=== PATIENT | female | born 1965 | race Caucasian/White ===

== ENCOUNTER 2018-05-16 07:03 | Inpatient (IN) | payer MEDICAID ==
[2018-05-16] MEDS ORDERED: IPRATROPIUM/ALBUTEROL 0.5-2.5 MG/3 ML AMPUL NEB ONE (07:22)
[2018-05-16] MEDS ORDERED: ALBUTEROL SULFATE 0.083% NEB 2.5 MG/3 ML AMPUL NEB ONE ×3 (07:31→11:48)
[2018-05-16 07:44] LABS: ABSOLUTE EOSINOPHILS # (AUTO) 0.1 10^3/uL (0.0-0.6); ABSOLUTE LYMPHOCYTES (AUTO) 0.5 10^3/uL (0.5-4.7); ABSOLUTE MONOCYTES (AUTO) 0.6 10^3/uL (0.1-1.4); ABSOLUTE NEUT (AUTO) 6.3 10^3/uL (1.7-8.2); BASOPHILS % (AUTO) 0.5 % (0-2); HEMATOCRIT 44.3 % (36.0-47.0); LYMPHOCYTES % (AUTO) 6.3 % (13-45); MEAN CORPUSCULAR HEMOGLOBIN 29.1 pg (27.0-33.4); MEAN CORPUSCULAR HGB CONC 33.8 g/dL (32.0-36.0); MEAN CORPUSCULAR VOLUME 86 fl (80-97); MONOCYTES % (AUTO) 8.1 % (3-13); PLATELET COUNT 253 10^3/uL (150-450); RED BLOOD COUNT 5.14 10^6/uL (3.72-5.28); RED CELL DISTRIBUTION WIDTH 16.4 % (11.5-14.0); SEGMENTED NEUTROPHILS % (AUTO) 84.1 % (42-78); TOTAL CELLS COUNTED % (AUTO) 100 %; WHITE BLOOD COUNT 7.5 10^3/uL (4.0-10.5)
--- NOTE | 2018-05-16 07:45 | ER Document Report ---
ED General - General Chief Complaint: Breathing Difficulty Stated Complaint: DIFFICULTY BREATHING Time Seen by Provider: 05/16/18 07:17 Primary Care Provider: NICKY ROBERSON MD [Primary Care Provider] - Follow up as needed Notes: 52-year-old female with COPD, depression, anxiety presents to the emergency department for shortness of breath, nausea, vomiting, diarrhea times 2 days. She states that it hit her hard yesterday. She became acutely short of breath this morning and was brought in by ambulance to the emergency department. She denies lightheadedness or dizziness. She complains of cough. She denies ear pain or sore throat. Complains of chest tightness and chest pain worsened with cough but chest pain is not constant or radiating. Denies abdominal pain but complains of right sided flank pain. Denies urinary symptoms. No other complaints. TRAVEL OUTSIDE OF THE [place] IN LAST 30 DAYS: No - Related Data Allergies/Adverse Reactions: Penicillins Allergy (Verified 01/26/14 00:23) Hives Past Medical History - Social History Smoking Status: Current Every Day Smoker Family History: Reviewed & Not Pertinent Patient has suicidal ideation: No Patient has homicidal ideation: No - Past Medical History Cardiac Medical History: Denies: Hx Coronary Artery Disease, Hx Heart Attack, Hx Hypertension Pulmonary Medical History: Reports: Hx Asthma, Hx Bronchitis, Hx COPD, Hx Pneumonia Neurological Medical History: Denies: Hx Cerebrovascular Accident, Hx Seizures Renal/ Medical History: Denies: Hx Peritoneal Dialysis Musculoskeletal Medical History: Denies Hx Arthritis Skin Medical History: Denies Hx MRSA Psychiatric Medical History: Reports: Hx Anxiety, Hx Depression Past Surgical History: Reports: Hx Section, Hx Cholecystectomy, Hx Tubal Ligation - 1993. Denies: Hx Hysterectomy - Immunizations Hx Diphtheria, Pertussis, Tetanus Vaccination: Yes Hx Pneumococcal Vaccination: 12/01/11 Review of Systems - Review of Systems Constitutional: See HPI EENT: See HPI Cardiovascular: See HPI Respiratory: See HPI Gastrointestinal: See HPI Genitourinary: See HPI Female Genitourinary: No symptoms reported Musculoskeletal: No symptoms reported Skin: No symptoms reported Hematologic/Lymphatic: No symptoms reported Neurological/Psychological: No symptoms reported Physical Exam - Vital signs Vitals: Temp Pulse Resp BP Pulse Ox 98.1 F 108 H 21 H 181/99 H 92 05/16/18 07:14 05/16/18 07:14 05/16/18 07:14 05/16/18 07:14 05/16/18 07:14 - Notes Notes: PHYSICAL EXAMINATION: Reviewed vital signs and charting by RN GENERAL: Alert, interacts well. Mild distress. HEAD: Normocephalic, atraumatic. EYES: Pupils equal, round. Extraocular movements intact. ENT: Oral mucosa moist, tongue midline. NECK: Full range of motion. Supple. Trachea midline. LUNGS: Breath sounds heard, end expiratory wheezes, no rales or rhonchi. Mild respiratory distress. Able to talk in full sentences HEART: Regular rate and rhythm. Sinus tachycardia, no murmur ABDOMEN: soft, non-tender. Non-distended. Bowel sounds present in all 4 quadrants. no McBurney's point tenderness, no De La Torre sign. EXTREMITIES: Moves all 4 extremities spontaneously. No edema, No cyanosis. NEUROLOGICAL: Alert and oriented. Normal speech. PSYCH: Normal affect, normal mood. SKIN: Warm, dry, normal turgor. No rashes or lesions noted. Course - Re-evaluation Re-evalutation: 05/16/18 08:00 Overall well-appearing 52-year-old female in mild distress presents for shortness of breath. Patient with history of COPD and one previous hospitalization that did not require intubation. Patient received 1 DuoNeb in route. Discussed case with Dr. Squires. Plan is to give 1 more DuoNeb, get some basic labs, chest x-ray, EKG. 05/16/18 08:45 Chest a and no acute findings seen, no consolidation. Lab work all normal. Troponin negative. Lipase normal. 05/16/18 08:49 Reassessed patient. Still with expiratory wheezing. Patient just went to the bathroom and appears to be short of breath. SPO2 was 89% after hooking her back up. We will give her another breathing treatment. 05/16/18 12:18 Patient received 3 total albuterol nebulizer treatments. Patient still short of breath with audible end expiratory wheezing. Patient still requiring 2 L of O2 via nasal cannula to maintain O2 sats greater than 92%. Spoke with Dr. Madhuri palmer, hospitalist, who saw the patient and is accepting patient for full admission to medical floor. - Vital Signs Vital signs: Temp Pulse Resp BP Pulse Ox 98.4 F 108 H 21 H 135/89 H 92 05/16/18 11:00 05/16/18 07:14 05/16/18 11:00 05/16/18 10:01 05/16/18 11:00 - Laboratory Result Diagrams: 05/16/18 06:30 05/16/18 06:30 Laboratory results interpreted by me: 05/16/18 05/16/18 06:30 06:30 RDW 16.4 H Seg Neutrophils % 84.1 H Lymphocytes % 6.3 L Glucose 120 H Discharge - Discharge Clinical Impression: COPD exacerbation Condition: Stable Disposition: ADMITTED INPATIENT Admitting Provider: Hospitalist Unit Admitted: Medical Floor Referrals: NICKY ROBERSON MD [Primary Care Provider] - Follow up as needed
[2018-05-16 07:51] LABS: ALANINE AMINOTRANSFERASE 17 U/L (9-52); ALBUMIN 4.6 g/dL (3.5-5.0); ALKALINE PHOSPHATASE 69 U/L (38-126); ANION GAP 13 (5-19); ASPARTATE AMINO TRANSFERASE 27 U/L (14-36); BILIRUBIN,DIRECT 0.3 mg/dL (0.0-0.4); BILIRUBIN,TOTAL 0.6 mg/dL (0.2-1.3); BLOOD UREA NITROGEN 9 mg/dL (7-20); CALCIUM 9.6 mg/dL (8.4-10.2); CARBON DIOXIDE 23 mmol/L (22-30); CHLORIDE 102 mmol/L (98-107); GLUCOSE 120 mg/dL (75-110); LIPASE 80.4 U/L (23-300); POTASSIUM 4.6 mmol/L (3.6-5.0); SODIUM 137.8 mmol/L (137-145); TOTAL PROTEIN 7.4 g/dL (6.3-8.2)
--- NOTE | 2018-05-16 08:29 | RADIOLOGY REPORT (SQ) ---
EXAM DESCRIPTION: CHEST SINGLE VIEW COMPLETED DATE/TIME: 05/16/2018 7:51 am REASON FOR STUDY: SOB COMPARISON: 07/03/2012 EXAM PARAMETERS: NUMBER OF VIEWS: One view. TECHNIQUE: Single frontal radiographic view of the chest acquired. RADIATION DOSE: NA LIMITATIONS: None. FINDINGS: LUNGS AND PLEURA: No opacities, masses or pneumothorax. No pleural effusion. MEDIASTINUM AND HILAR STRUCTURES: No masses. Contour normal. HEART AND VASCULAR STRUCTURES: Heart normal in size. Normal vasculature. BONES: No acute findings. HARDWARE: Surgical clips overlie left axilla. OTHER: No other significant finding. IMPRESSION: NO ACUTE RADIOGRAPHIC FINDING IN THE CHEST. TECHNICAL DOCUMENTATION: JOB ID: [id number] [employer]- All Rights Reserved Reading location - IP/workstation name: [email or web address]
[2018-05-16] MEDS ORDERED: ONDANSETRON HCL INJ/PF 4 MG/2 ML SDV IV ONE (08:52)
[2018-05-16] MEDS ORDERED: ONDANSETRON HCL INJ/PF 4 MG/2 ML SDV ONE (08:53)
--- NOTE | 2018-05-16 08:57 | EKG REPORT ---
SEVERITY:- BORDERLINE ECG - SINUS RHYTHM BORDERLINE T WAVE ABNORMALITIES : Confirmed by: Radha Mcclure MD 16-May-2018 08:57:05
[2018-05-16] MEDS ORDERED: PROMETHAZINE HCL INJ 25 MG/1 ML VIAL IV ONE (09:43)
[2018-05-16] MEDS ORDERED: METHYLPREDNISOLONE INJ 125 MG/2 ML SDV IV ONE (10:47)
[2018-05-16] MEDS ORDERED: ACETAMINOPHEN 325 MG TABLET PO ONE (12:13)
[2018-05-16] MEDS ORDERED: ONDANSETRON HCL INJ/PF 4 MG/2 ML SDV IV PRN (12:28)
[2018-05-16] MEDS ORDERED: NICOTINE 7 MG/24 HR PATCH.TD24 TD PRN (12:36)
--- NOTE | 2018-05-16 12:45 | PDOC H&P ---
History of Present Illness Admission Date/PCP: NICKY ROBERSON MD History of Present Illness: ALIZA STEWART is a 52 year old female patient with past medical history of obstructive sleep apnea, morbid obesity, COPD exacerbation, and anxiety depression and bronchial asthma presented with chief complaint of shortness of breath, vomiting and diarrhea. Patient brought by EMS and when she arrived to the hospital her O2 saturation dropped to lower 80s. Patient denied any fever or chills and diaphoresis. She endorses palpitation and chest pain. Even though she has vomiting and diarrhea she denied any abdominal pain. No headache, dizziness, blurring of vision or any seizure activity. Her blood works and imaging studies unremarkable. Past Medical History Cardiac Medical History: Denies: Coronary Artery Disease, Myocardial Infarction, Hypertension Pulmonary Medical History: Reports: Asthma, Bronchitis, Chronic Obstructive Pulmonary Disease (COPD), Pneumonia Neurological Medical History: Denies: Seizures Musculoskeltal Medical History: Denies: Arthritis Psychiatric Medical History: Reports: Depression Hematology: Denies: Anemia Past Surgical History Past Surgical History: Reports: Section, Cholecystectomy, Tubal Ligation - 1993 Denies: Hysterectomy Social History Smoking Status: Current Every Day Smoker Frequency of Alcohol Use: None Drugs: None - Advance Directive Resuscitation Status: Full Code Family History Family History: Reviewed & Not Pertinent, DM, Hypertension Parental Family History Reviewed: Yes Children Family History Reviewed: Yes Sibling(s) Family History Reviewed.: Yes Medication/Allergy Home Medications: Alprazolam [Xanax 0.5 mg Tablet] 0.5 mg PO TID 08/25/13 Cetirizine HCl [Zyrtec] 10 mg PO DAILY 08/25/13 Dicyclomine HCl [Bentyl 10 mg Capsule] 1 cap PO TID 08/25/13 Fluoxetine HCl [Prozac] 40 mg PO DAILY 08/25/13 Fluticasone/Salmeterol [Advair 250-50 Diskus 28 dose] 1 inh IH DAILY 08/25/13 Ipratropium/Albuterol Sulfate [Combivent Inhaler] 14.7 gm IH DAILY 08/25/13 Montelukast Sodium 10 mg PO DAILY 08/25/13 Albuterol Sulfate [Proair HFA] 1 - 2 puff IH Q4 PRN 08/26/13 Allergies/Adverse Reactions: Penicillins Allergy (Verified 01/26/14 00:23) Hives Review of Systems Constitutional: PRESENT: weakness Eyes: PRESENT: as per HPI Ears: PRESENT: as per HPI Nose, Mouth, and Throat: PRESENT: as per HPI Cardiovascular: PRESENT: as per HPI, dyspnea on exertion Musculoskeletal: PRESENT: as per HPI Neurological: PRESENT: as per HPI Physical Exam Vital Signs: Temp Pulse Resp BP Pulse Ox 98.4 F 108 H 21 H 135/89 H 92 05/16/18 11:00 05/16/18 07:14 05/16/18 11:00 05/16/18 10:01 05/16/18 11:00 Intake & Output 05/15/18 05/16/18 05/17/18 06:59 06:59 06:59 Weight 124.2 kg General appearance: PRESENT: mild distress Head exam: PRESENT: atraumatic, normocephalic Mouth exam: PRESENT: moist Neck exam: PRESENT: carotid bruit Respiratory exam: PRESENT: wheezes Cardiovascular exam: PRESENT: RRR, tachycardia. ABSENT: diastolic murmur, rubs, systolic murmur GI/Abdominal exam: PRESENT: normal bowel sounds, soft. ABSENT: distended, guarding, mass, organolmegaly, rebound, tenderness Neurological exam: PRESENT: alert, awake, oriented to time, oriented to situation Results Laboratory Results: 05/16/18 06:30 05/16/18 06:30 05/16/18 05/16/18 06:30 06:30 WBC 7.5 RBC 5.14 Hgb 15.0 Hct 44.3 MCV 86 MCH 29.1 MCHC 33.8 RDW 16.4 H Plt Count 253 Seg Neutrophils % 84.1 H Lymphocytes % 6.3 L Monocytes % 8.1 Eosinophils % 1.0 Basophils % 0.5 Absolute Neutrophils 6.3 Absolute Lymphocytes 0.5 Absolute Monocytes 0.6 Absolute Eosinophils 0.1 Absolute Basophils 0.0 Sodium 137.8 Potassium 4.6 Chloride 102 Carbon Dioxide 23 Anion Gap 13 BUN 9 Creatinine 0.64 Est GFR ( Amer) > 60 Est GFR (Non-Af Amer) > 60 Glucose 120 H Calcium 9.6 Magnesium 1.8 Total Bilirubin 0.6 AST 27 ALT 17 Alkaline Phosphatase 69 Total Protein 7.4 Albumin 4.6 Lipase 80.4 05/16/18 06:30 Troponin I < 0.012 Impressions: Chest X-Ray 05/16/18 07:23 IMPRESSION: NO ACUTE RADIOGRAPHIC FINDING IN THE CHEST. Assessment & Plan - Diagnosis (1) COPD without exacerbation Is this a current diagnosis for this admission?: Yes Plan: Patient has been started on supplemental oxygen, bronchodilator, antibiotics and steroid. (2) Obstructive sleep apnea Is this a current diagnosis for this admission?: Yes Plan: Patient has been started on CPAP. (3) Morbid obesity with BMI of 45.0-49.9, adult Is this a current diagnosis for this admission?: Yes Plan: Advised patient advised to do lifestyle modification in the form of healthy diet regular exercise and weight loss and she voiced agreement. (4) Tobacco dependence Is this a current diagnosis for this admission?: Yes Plan: Patient counseled and encouraged to quit smoking.
--- NOTE | 2018-05-16 14:39 | RADIOLOGY REPORT (SQ) ---
EXAM DESCRIPTION: CTA CHEST COMPLETED DATE/TIME: 05/16/2018 2:15 pm REASON FOR STUDY: MIKE MCINTYRE COMPARISON: 05/16/2018 TECHNIQUE: CT scan of the chest performed using helical scanning technique with dynamic intravenous contrast injection. Images reviewed with lung, soft tissue and bone windows. Reconstructed coronal and sagittal MPR images reviewed. Additional 3 dimensional post-processing performed to develop Maximal Intensity Projection images (TN P). All images stored on PACS. All CT scanners at this facility use dose modulation, iterative reconstruction, and/or weight based d osing when appropriate to reduce radiation dose to as low as reasonably achievable (ALARA). [facility]: Dose Right [facility]: CareDose [facility]: Dose Right [facility]: Teradose 4D [facility]: [employer] CONTRAST TYPE AND DOSE: contrast/concentration: Isovue 350.00 mg/ml; Total Contrast Delivered: 90.0 ml; Total Saline Delivered: 66.2 ml Contrast bolus optimized for the pulmonary arteries. Not diagnostic for the aorta. RENAL FUNCTION: BUN 9, creatinine 0.64 RADIATION DOSE: CT Rad equipment meets quality standard of care and radiation dose reduction techniq ues were employed. CTDIvol: 37.2 - 37.9 mGy. DLP: 1445 mGy-cm. . LIMITATIONS: None. FINDINGS: LUNGS AND PLEURA: Subtle scattered areas of centrilobular and tree-in-bud opacities most c onspicuous within the left upper lobe and the lingula. No dense consolidation. No pleural effusion or pneumothorax. Calcified right middle lobe granuloma. No discrete masses. AORTA AND GREAT VESSELS: No aneurysm. Contrast bolus not optimized for the aorta. HEART: No pericardial effusion. No significant coronary artery calcifications. PULMONARY ARTERIES: No emboli visualized in the main pulmonary arteries or the segmental branches. HILAR AND MEDIASTINAL STRUCTURES: No identified masses or abnormal nodes. HARDWARE: None in the chest. UPPER ABDOMEN: No acute findings on the visualized abdomen. Prior cholecystectomy. THYROID AND OTHER SOFT TISSUES: No masses. No adenopathy. BONES: No acute or significant finding. L1 hemangioma. 3D MIPS: Confirm above findings. OTHER: No other significant finding. IMPRESSION: No evidence of pulmonary embolus. Subtle mild centrilobular ground-glass opacities most conspicuous in the left upper lobe and lingula likely infectious/inflammatory. COMMENT: Quality ID # [id number]: Final reports with documentation of one or more dose reduction techniques (e.g., Automated exposure control, adjustment of the mA and/or kV according to patient size, use of iterative reconstruction technique) TECHNICAL DOCUMENTATION: JOB ID: [id number] [employer]- All Rights Reserved Reading location - IP/workstation name: [email or web address]
[2018-05-16] MEDS: IPRATROPIUM/ALBUTEROL 0.5-2.5 MG/3 ML AMPUL NEB SCH ×2 (14:46→19:13)
[2018-05-16] MEDS ORDERED: KETOROLAC TROMETHAMINE INJ/PF 30 MG/1 ML SDV IV ONE (15:09)
[2018-05-16] MEDS: LEVOFLOXACIN 750 MG/D5W RTU 750 MG/150 ML RTUPB IV SCH (15:45)
[2018-05-16] MEDS: ENOXAPARIN SODIUM INJ 40 MG/0.4 ML DISP.SYRIN SUBCUT SCH (15:45)
[2018-05-16] MEDS: METHYLPREDNISOLONE INJ 40 MG/1 ML SDV IV SCH ×2 (15:47→21:14)
[2018-05-16] MEDS: KETOROLAC TROMETHAMINE INJ/PF 30 MG/1 ML SDV IV PRN (20:34)
[2018-05-16] MEDS: CLONAZEPAM 1 MG TABLET PO SCH (21:15)
[2018-05-16] MEDS: FAMOTIDINE 20 MG TABLET PO SCH (21:15)
[2018-05-17] MEDS: IPRATROPIUM/ALBUTEROL 0.5-2.5 MG/3 ML AMPUL NEB SCH ×6 (01:41→19:47)
[2018-05-17] MEDS: KETOROLAC TROMETHAMINE INJ/PF 30 MG/1 ML SDV IV PRN ×2 (04:23→11:58)
[2018-05-17] MEDS: METHYLPREDNISOLONE INJ 40 MG/1 ML SDV IV SCH ×3 (05:18→22:51)
[2018-05-17] MEDS ORDERED: (PENDING PHARMACY ID) (Cetirizine Hcl [Zyrtec] 10 MG) PO SCH (10:00)
[2018-05-17] MEDS ORDERED: (PENDING PHARMACY ID) (Clonazepam [Klonopin] 0.5 MG) PO SCH (10:00)
[2018-05-17] MEDS: CLONAZEPAM 1 MG TABLET PO SCH ×2 (11:50→22:51)
[2018-05-17] MEDS: ENOXAPARIN SODIUM INJ 40 MG/0.4 ML DISP.SYRIN SUBCUT SCH (11:52)
[2018-05-17] MEDS: MONTELUKAST SODIUM 10 MG TABLET PO SCH (11:53)
[2018-05-17] MEDS: LEVOFLOXACIN 750 MG/D5W RTU 750 MG/150 ML RTUPB IV SCH (11:53)
[2018-05-17] MEDS: CETIRIZINE 10 MG TABLET PO SCH (11:54)
[2018-05-17] MEDS: SERTRALINE HCL 50 MG TABLET PO SCH (11:54)
[2018-05-17] MEDS: FAMOTIDINE 20 MG TABLET PO SCH ×2 (11:54→22:51)
--- NOTE | 2018-05-17 14:53 | PDOC PROGRESS REPORT ---
Subjective Progress Note for:: 05/17/18 Subjective:: This is a 52 years old female patient presented with chief complaint of cough and shortness of breath. Patient has underlying COPD, morbid obesity, tobacco dependence and obstructive sleep apnea. She is being managed with Solu- Medrol, bronchodilator, Levaquin and supplemental oxygen. This morning I seen patient propped up in bed and she is still in mild to moderate respiratory distress with audible wheezing. I changed her admission status to inpatient. Reason For Visit: COPD EXACERBATION Physical Exam Vital Signs: Temp Pulse Resp BP Pulse Ox 97.7 F 104 H 18 145/99 H 97 05/17/18 11:00 05/17/18 13:31 05/17/18 13:31 05/17/18 11:00 05/17/18 13:31 Intake & Output 05/16/18 05/17/18 05/18/18 06:59 06:59 06:59 Intake Total 450 Balance 450 Weight 124.2 kg General appearance: PRESENT: morbidly obese, other - Moderate distress Head exam: PRESENT: atraumatic, normocephalic Eye exam: PRESENT: conjunctiva pink Mouth exam: PRESENT: moist Neck exam: ABSENT: carotid bruit, JVD, lymphadenopathy, thyromegaly Respiratory exam: PRESENT: wheezes Cardiovascular exam: PRESENT: RRR. ABSENT: diastolic murmur, rubs, systolic murmur GI/Abdominal exam: PRESENT: normal bowel sounds, soft. ABSENT: distended, guarding, mass, organolmegaly, rebound, tenderness Extremities exam: PRESENT: full ROM. ABSENT: calf tenderness, clubbing, pedal edema Neurological exam: PRESENT: alert, awake, oriented to time, oriented to situation Psychiatric exam: PRESENT: normal mood Results Laboratory Results: 05/16/18 06:30 05/16/18 06:30 05/16/18 06:30 Troponin I < 0.012 Impressions: Chest/Abdomen CTA 05/16/18 00:00 IMPRESSION: No evidence of pulmonary embolus. Subtle mild centrilobular ground-glass opacities most conspicuous in the left upper lobe and lingula likely infectious/inflammatory. Chest X-Ray 05/16/18 07:23 IMPRESSION: NO ACUTE RADIOGRAPHIC FINDING IN THE CHEST. Assessment & Plan - Diagnosis (1) COPD without exacerbation Is this a current diagnosis for this admission?: Yes Plan: Continue current treatment (2) Obstructive sleep apnea Is this a current diagnosis for this admission?: Yes Plan: Continue current regimen (3) Morbid obesity with BMI of 45.0-49.9, adult Is this a current diagnosis for this admission?: Yes Plan: Advised patient advised to do lifestyle modification in the form of healthy diet regular exercise and weight loss and she voiced agreement. (4) Tobacco dependence Is this a current diagnosis for this admission?: Yes Plan: Patient counseled and encouraged to quit smoking.
[2018-05-18] MEDS: KETOROLAC TROMETHAMINE INJ/PF 30 MG/1 ML SDV IV PRN (01:16)
[2018-05-18] MEDS: IPRATROPIUM/ALBUTEROL 0.5-2.5 MG/3 ML AMPUL NEB SCH ×5 (02:20→23:37)
[2018-05-18] MEDS: METHYLPREDNISOLONE INJ 40 MG/1 ML SDV IV SCH ×3 (05:45→23:53)
[2018-05-18] MEDS: CLONAZEPAM 1 MG TABLET PO SCH ×2 (11:24→22:05)
[2018-05-18] MEDS: SERTRALINE HCL 50 MG TABLET PO SCH (11:24)
[2018-05-18] MEDS: FAMOTIDINE 20 MG TABLET PO SCH ×2 (11:24→22:05)
[2018-05-18] MEDS: CETIRIZINE 10 MG TABLET PO SCH (11:25)
[2018-05-18] MEDS: MONTELUKAST SODIUM 10 MG TABLET PO SCH (11:25)
[2018-05-18] MEDS: LEVOFLOXACIN 750 MG/D5W RTU 750 MG/150 ML RTUPB IV SCH (11:25)
[2018-05-18] MEDS: ENOXAPARIN SODIUM INJ 40 MG/0.4 ML DISP.SYRIN SUBCUT SCH (11:25)
--- NOTE | 2018-05-18 13:53 | PDOC PROGRESS REPORT ---
Subjective Progress Note for:: 05/18/18 Subjective:: I seen patient sitting up in bed. Still she is in mild to moderate respiratory distress. She has also bilateral diffuse wheezing on auscultation. I increased the dose of her Solu-Medrol to 80 mg IV every 8 hours and the frequency of her today from every 6 hours to every 4 hours.. Reportedly patient used to wear oxygen. Her oxygen saturation drops whenever her oxygen is removed. She may qualify for home oxygen therapy. Reason For Visit: COPD EXACERBATION Physical Exam Vital Signs: Temp Pulse Resp BP Pulse Ox 98.2 F 81 17 144/78 H 88 L 05/18/18 11:55 05/18/18 11:55 05/18/18 11:55 05/18/18 11:55 05/18/18 11:55 Intake & Output 05/17/18 05/18/18 05/19/18 06:59 06:59 06:59 Intake Total 450 3510 Balance 450 3510 Weight 124.2 kg 129.9 kg General appearance: PRESENT: mild distress, morbidly obese Eye exam: PRESENT: conjunctiva pink Mouth exam: PRESENT: moist Neck exam: ABSENT: carotid bruit, JVD, lymphadenopathy, thyromegaly Respiratory exam: PRESENT: wheezes Cardiovascular exam: PRESENT: RRR. ABSENT: diastolic murmur, rubs, systolic murmur GI/Abdominal exam: PRESENT: normal bowel sounds, soft. ABSENT: distended, guarding, mass, organolmegaly, rebound, tenderness Neurological exam: PRESENT: alert, awake, oriented to time, oriented to situation Results Laboratory Results: 05/16/18 06:30 05/16/18 06:30 05/16/18 06:30 Troponin I < 0.012 Impressions: Chest/Abdomen CTA 05/16/18 00:00 IMPRESSION: No evidence of pulmonary embolus. Subtle mild centrilobular ground-glass opacities most conspicuous in the left upper lobe and lingula likely infectious/inflammatory. Chest X-Ray 05/16/18 07:23 IMPRESSION: NO ACUTE RADIOGRAPHIC FINDING IN THE CHEST. Assessment & Plan - Diagnosis (1) COPD without exacerbation Is this a current diagnosis for this admission?: Yes Plan: Continue current treatment (2) Obstructive sleep apnea Is this a current diagnosis for this admission?: Yes Plan: Continue current regimen (3) Morbid obesity with BMI of 45.0-49.9, adult Is this a current diagnosis for this admission?: Yes Plan: Advised patient advised to do lifestyle modification in the form of healthy diet regular exercise and weight loss and she voiced agreement. (4) Tobacco dependence Is this a current diagnosis for this admission?: Yes Plan: Patient counseled and encouraged to quit smoking.
[2018-05-18] MEDS ORDERED: METHYLPREDNISOLONE INJ 40 MG/1 ML SDV IV SCH (14:00)
[2018-05-18] MEDS ORDERED: ALPRAZOLAM 0.5 MG TABLET PO SCH (22:00)
[2018-05-18] MEDS: TRAZODONE HCL 50 MG TABLET PO SCH (22:05)
[2018-05-19] MEDS: IPRATROPIUM/ALBUTEROL 0.5-2.5 MG/3 ML AMPUL NEB SCH ×6 (04:18→23:50)
[2018-05-19] MEDS: METHYLPREDNISOLONE INJ 40 MG/1 ML SDV IV SCH ×3 (05:28→19:00)
[2018-05-19] MEDS: SERTRALINE HCL 50 MG TABLET PO SCH (09:13)
[2018-05-19] MEDS: CETIRIZINE 10 MG TABLET PO SCH (09:13)
[2018-05-19] MEDS: CLONAZEPAM 1 MG TABLET PO SCH ×2 (09:16→22:20)
[2018-05-19] MEDS: MONTELUKAST SODIUM 10 MG TABLET PO SCH (09:17)
[2018-05-19] MEDS: FAMOTIDINE 20 MG TABLET PO SCH ×2 (09:17→22:20)
[2018-05-19] MEDS: ENOXAPARIN SODIUM INJ 40 MG/0.4 ML DISP.SYRIN SUBCUT SCH (09:17)
[2018-05-19 13:01] LABS: ARTERIAL BLOOD BASE EXCESS 2.7 mmol/L; ARTERIAL BLOOD H2CO3 1.49 mmol/L (1.05-1.35); ARTERIAL BLOOD HCO3 28.7 mmol/L (20-24); ARTERIAL BLOOD O2 SATURATION 96.8 % (94-98); ARTERIAL BLOOD PCO2 49.4 mmHg (35-45); ARTERIAL BLOOD PH 7.38 (7.35-7.45); ARTERIAL BLOOD TOTAL CO2 30.2 mmol/L (21-25)
[2018-05-19 13:03] LABS: ARTERIAL BLOOD FIO2 35%
[2018-05-19] MEDS: LEVOFLOXACIN 750 MG/D5W RTU 750 MG/150 ML RTUPB IV SCH (13:40)
--- NOTE | 2018-05-19 17:34 | PDOC PROGRESS REPORT ---
Subjective Progress Note for:: 05/19/18 Subjective:: This is a 52 years old female patient presented with chief complaint of cough and shortness of breath. Patient has underlying COPD, morbid obesity, tobacco dependence and obstructive sleep apnea. She is being managed with Solu- Medrol, bronchodilator, Levaquin and supplemental oxygen and intermittent BiPAP. I seen and examined the patient while she is sitting in bed. She has bilateral diffuse wheezing. Reason For Visit: COPD EXACERBATION Physical Exam Vital Signs: Temp Pulse Resp BP Pulse Ox 97.4 F 97 18 164/95 H 97 05/19/18 16:08 05/19/18 16:08 05/19/18 16:08 05/19/18 16:08 05/19/18 16:08 Intake & Output 05/18/18 05/19/18 05/20/18 06:59 06:59 06:59 Intake Total 3510 1650 Balance 3510 1650 Weight 129.9 kg 127.9 kg General appearance: PRESENT: mild distress Head exam: PRESENT: atraumatic, normocephalic Eye exam: PRESENT: conjunctiva pink Mouth exam: PRESENT: moist Neck exam: ABSENT: carotid bruit, JVD, lymphadenopathy, thyromegaly Respiratory exam: PRESENT: wheezes Cardiovascular exam: PRESENT: RRR. ABSENT: diastolic murmur, rubs, systolic murmur GI/Abdominal exam: PRESENT: normal bowel sounds, soft. ABSENT: distended, guarding, mass, organolmegaly, rebound, tenderness Neurological exam: PRESENT: alert, awake, oriented to time, oriented to situation Results Laboratory Results: 05/16/18 06:30 05/16/18 06:30 05/19/18 12:36 Carbonic Acid 1.49 H HCO3/H2CO3 Ratio 19:1 ABG pH 7.38 ABG pCO2 49.4 H ABG pO2 91.0 ABG HCO3 28.7 H ABG O2 Saturation 96.8 ABG Base Excess 2.7 FiO2 35% 05/16/18 06:30 Troponin I < 0.012 Impressions: Chest/Abdomen CTA 05/16/18 00:00 IMPRESSION: No evidence of pulmonary embolus. Subtle mild centrilobular ground-glass opacities most conspicuous in the left upper lobe and lingula likely infectious/inflammatory. Chest X-Ray 05/16/18 07:23 IMPRESSION: NO ACUTE RADIOGRAPHIC FINDING IN THE CHEST. Assessment & Plan - Diagnosis (1) COPD without exacerbation Is this a current diagnosis for this admission?: Yes Plan: Continue current treatment (2) Obstructive sleep apnea Is this a current diagnosis for this admission?: Yes Plan: Continue current regimen (3) Morbid obesity with BMI of 45.0-49.9, adult Is this a current diagnosis for this admission?: Yes Plan: Advised patient advised to do lifestyle modification in the form of healthy diet regular exercise and weight loss and she voiced agreement. (4) Tobacco dependence Is this a current diagnosis for this admission?: Yes Plan: Patient counseled and encouraged to quit smoking. (5) Anxiety and depression Is this a current diagnosis for this admission?: Yes Plan: Continue her home medication.
[2018-05-19] MEDS: TRAZODONE HCL 50 MG TABLET PO SCH (22:20)
[2018-05-20] MEDS: METHYLPREDNISOLONE INJ 40 MG/1 ML SDV IV SCH ×4 (00:12→18:48)
[2018-05-20] MEDS: IPRATROPIUM/ALBUTEROL 0.5-2.5 MG/3 ML AMPUL NEB SCH ×5 (04:12→20:47)
[2018-05-20] MEDS: CLONAZEPAM 1 MG TABLET PO SCH ×2 (09:49→22:10)
[2018-05-20] MEDS: CETIRIZINE 10 MG TABLET PO SCH (09:50)
[2018-05-20] MEDS: MONTELUKAST SODIUM 10 MG TABLET PO SCH (09:50)
[2018-05-20] MEDS: FAMOTIDINE 20 MG TABLET PO SCH ×2 (09:50→22:10)
[2018-05-20] MEDS: SERTRALINE HCL 50 MG TABLET PO SCH (09:50)
[2018-05-20] MEDS: ENOXAPARIN SODIUM INJ 40 MG/0.4 ML DISP.SYRIN SUBCUT SCH (09:50)
[2018-05-20] MEDS: LEVOFLOXACIN 750 MG/D5W RTU 750 MG/150 ML RTUPB IV SCH (16:34)
[2018-05-20] MEDS: TRAZODONE HCL 50 MG TABLET PO SCH (22:10)
[2018-05-21] MEDS: METHYLPREDNISOLONE INJ 125 MG/2 ML SDV IV SCH ×2 (00:20→05:24)
[2018-05-21] MEDS: IPRATROPIUM/ALBUTEROL 0.5-2.5 MG/3 ML AMPUL NEB SCH ×5 (00:55→20:34)
[2018-05-21] MEDS ORDERED: ALBUTEROL SULFATE 0.083% NEB 2.5 MG/3 ML AMPUL NEB PRN (09:41)
--- NOTE | 2018-05-21 09:45 | PDOC PROGRESS REPORT ---
Subjective Progress Note for:: 05/20/18 Subjective:: Still markedly short of breath Reason For Visit: COPD EXACERBATION Physical Exam Vital Signs: Temp Pulse Resp BP Pulse Ox 98.2 F 109 H 25 H 157/89 H 98 05/20/18 16:09 05/20/18 16:09 05/20/18 16:09 05/20/18 16:09 05/20/18 16:09 Intake & Output 05/19/18 05/20/18 05/21/18 06:59 06:59 06:59 Intake Total 1650 1500 916 Balance 1650 1500 916 Weight 127.9 kg 128.2 kg General appearance: PRESENT: cooperative, mild distress, morbidly obese - BMI 47.0, well-developed Head exam: PRESENT: normocephalic Eye exam: PRESENT: conjunctiva pink. ABSENT: scleral icterus Ear exam: PRESENT: normal external ear exam Respiratory exam: PRESENT: clear to auscultation caitlyn, prolonged expiratory phas, symmetrical. ABSENT: accessory muscle use, rales, rhonchi, stridor, wheezes Cardiovascular exam: PRESENT: RRR, +S1, +S2 GI/Abdominal exam: PRESENT: normal bowel sounds, soft. ABSENT: distended, tenderness Neurological exam: PRESENT: alert, awake, oriented to person, oriented to place, oriented to time, oriented to situation, CN II-XII grossly intact Psychiatric exam: PRESENT: anxious, appropriate affect. ABSENT: agitated Focused psych exam: ABSENT: delusional, restlessness Skin exam: PRESENT: other. ABSENT: normal color - Facial flushing Results Laboratory Results: 05/16/18 06:30 05/16/18 06:30 05/16/18 06:30 Troponin I < 0.012 Impressions: Chest/Abdomen CTA 05/16/18 00:00 IMPRESSION: No evidence of pulmonary embolus. Subtle mild centrilobular ground-glass opacities most conspicuous in the left upper lobe and lingula likely infectious/inflammatory. Chest X-Ray 05/16/18 07:23 IMPRESSION: NO ACUTE RADIOGRAPHIC FINDING IN THE CHEST. Assessment & Plan - Diagnosis (1) Pneumonia Qualifiers: Pneumonia type: due to unspecified organism Laterality: bilateral Is this a current diagnosis for this admission?: Yes Plan: Bilateral multi lobar consolidation seen on CT scan. Continue current antibiotics with aggressive inhaler/nebulizer regimen (2) COPD exacerbation Is this a current diagnosis for this admission?: Yes Plan: Continues to need BiPAP. Continue Advair with nebulizer therapy as well. Systemic steroids decreased. (3) Anxiety and depression Is this a current diagnosis for this admission?: Yes Plan: Continue sertraline and clonazepam (4) Morbid obesity with BMI of 45.0-49.9, adult Is this a current diagnosis for this admission?: Yes Plan: Encourage weight loss with diet and exercise (5) Obstructive sleep apnea Is this a current diagnosis for this admission?: Yes Plan: We will encourage compliance with BiPAP at night. - Time Time Spent with patient: 15-24 minutes Medications reviewed and adjusted accordingly: Yes
[2018-05-21] MEDS: CLONAZEPAM 1 MG TABLET PO SCH ×2 (11:09→23:17)
[2018-05-21] MEDS: MONTELUKAST SODIUM 10 MG TABLET PO SCH (11:10)
[2018-05-21] MEDS: FAMOTIDINE 20 MG TABLET PO SCH ×2 (11:10→23:17)
[2018-05-21] MEDS: CETIRIZINE 10 MG TABLET PO SCH (11:10)
[2018-05-21] MEDS: SERTRALINE HCL 50 MG TABLET PO SCH (11:10)
[2018-05-21] MEDS: LEVOFLOXACIN 750 MG/D5W RTU 750 MG/150 ML RTUPB IV SCH (11:10)
[2018-05-21] MEDS: ENOXAPARIN SODIUM INJ 40 MG/0.4 ML DISP.SYRIN SUBCUT SCH (11:11)
--- NOTE | 2018-05-21 13:28 | RADIOLOGY REPORT (SQ) ---
EXAM DESCRIPTION: CHEST SINGLE VIEW COMPLETED DATE/TIME: 05/21/2018 1:16 pm REASON FOR STUDY: resp failure COMPARISON: 05/16/2018 EXAM PARAMETERS: NUMBER OF VIEWS: One view. TECHNIQUE: Single frontal radiographic view of the chest acquired. RADIATION DOSE: NA LIMITATIONS: None. FINDINGS: LUNGS AND PLEURA: No opacities, masses or pneumothorax. No pleural effusion. MEDIASTINUM AND HILAR STRUCTURES: No masses. Contour normal. HEART AND VASCULAR STRUCTURES: Heart normal in size. Normal vasculature. BONES: No acute findings. HARDWARE: None in the chest. OTHER: Surgical clips overlie the left axilla, stable finding. IMPRESSION: 1. No significant interval changes since the previous examination dated 05/16/2018. NO ACUTE RADIOGRAPHIC FINDING IN THE CHEST. TECHNICAL DOCUMENTATION: JOB ID: [id number] [email or web address]- All Rights Reserved Reading location - IP/workstation name: [email or web address]
[2018-05-21] MEDS ORDERED: METHYLPREDNISOLONE INJ 40 MG/1 ML SDV IV SCH (14:00)
[2018-05-21] MEDS ORDERED: METHYLPREDNISOLONE INJ 125 MG/2 ML SDV IV SCH (14:00)
[2018-05-21] MEDS ORDERED: TUBERCULIN,PURIF.PROT.DERIV. 5 TU/0.1 ML TEST 1 ML VIAL ID ONE (15:18)
[2018-05-21 15:29] LABS: ANION GAP 8 (5-19); BLOOD UREA NITROGEN 21 mg/dL (7-20); CALCIUM 9.2 mg/dL (8.4-10.2); CARBON DIOXIDE 32 mmol/L (22-30); CHLORIDE 102 mmol/L (98-107); GLUCOSE 138 mg/dL (75-110); POTASSIUM 4.4 mmol/L (3.6-5.0); SODIUM 141.7 mmol/L (137-145)
[2018-05-21] MEDS: METHYLPREDNISOLONE INJ 40 MG/1 ML SDV IV SCH ×2 (19:45→23:15)
--- NOTE | 2018-05-21 19:52 | PDOC PROGRESS REPORT ---
Subjective Progress Note for:: 05/21/18 Subjective:: Patient still having difficulties requiring BiPAP. Appears to be declining rather than improving. Reason For Visit: COPD EXACERBATION Physical Exam Vital Signs: Temp Pulse Resp BP Pulse Ox 97.6 F 106 H 24 H 163/92 H 93 05/21/18 11:59 05/21/18 14:06 05/21/18 14:06 05/21/18 11:59 05/21/18 14:06 Intake & Output 05/20/18 05/21/18 05/22/18 06:59 06:59 06:59 Intake Total 1500 1546 Balance 1500 1546 Weight 128.2 kg 128.2 kg General appearance: PRESENT: cooperative, mild distress - Mild to moderate distress, morbidly obese, well-developed Head exam: PRESENT: normocephalic Mouth exam: PRESENT: other - BiPAP in place Respiratory exam: PRESENT: prolonged expiratory phas, tachypnea, wheezes - With coarse breath sounds. ABSENT: rales, rhonchi Cardiovascular exam: PRESENT: RRR, +S1, +S2 GI/Abdominal exam: PRESENT: normal bowel sounds, soft. ABSENT: distended, tenderness Neurological exam: PRESENT: alert, awake, oriented to person, oriented to place, oriented to time, oriented to situation, CN II-XII grossly intact Psychiatric exam: PRESENT: anxious. ABSENT: agitated Focused psych exam: ABSENT: delusional, restlessness Skin exam: PRESENT: other - Still with facial flushing Results Laboratory Results: 05/16/18 06:30 05/16/18 06:30 05/16/18 06:30 Troponin I < 0.012 Impressions: Chest/Abdomen CTA 05/16/18 00:00 IMPRESSION: No evidence of pulmonary embolus. Subtle mild centrilobular ground-glass opacities most conspicuous in the left upper lobe and lingula likely infectious/inflammatory. Chest X-Ray 05/21/18 00:00 IMPRESSION: 1. No significant interval changes since the previous examination dated 05/16/2018. NO ACUTE RADIOGRAPHIC FINDING IN THE CHEST. Assessment & Plan - Diagnosis (1) Acute and chronic respiratory failure with hypoxia Is this a current diagnosis for this admission?: Yes Plan: The patient still requires BiPAP for the majority of the day and night. Supplemental oxygen as well. Please also see below. (2) Pneumonia Qualifiers: Pneumonia type: due to unspecified organism Laterality: bilateral Is this a current diagnosis for this admission?: Yes Plan: Continue current antibiotic regimen. (3) COPD exacerbation Is this a current diagnosis for this admission?: Yes Plan: The decrease in steroids was not tolerated. I will increase the Solu-Medrol back to 80 mg every 6 hours. In addition I have added budesonide nebulizer treatments. I have asked the hatch boss, Dr. Boyd, to see the patient as well. We will repeat a CT scan of the chest today and compared to the scan on admission. (4) Anxiety and depression Is this a current diagnosis for this admission?: Yes Plan: Her clonazepam was increased. She has as needed lorazepam available. In addition I will start BuSpar for chronic anxiety management. (5) Morbid obesity with BMI of 45.0-49.9, adult Is this a current diagnosis for this admission?: Yes Plan: Encourage weight loss with diet and exercise (6) Obstructive sleep apnea Is this a current diagnosis for this admission?: Yes Plan: We will encourage compliance with BiPAP at night. - Time Time Spent with patient: 15-24 minutes Medications reviewed and adjusted accordingly: Yes
[2018-05-21] MEDS: BUDESONIDE NEB 0.5 MG/2 ML AMPUL NEB SCH (20:34)
--- NOTE | 2018-05-21 20:48 | RADIOLOGY REPORT (SQ) ---
EXAM DESCRIPTION: CT CHEST WITH IV CONTRAST COMPLETED DATE/TME: 05/21/2018 00:00 CLINICAL HISTORY: 52 years, Female, Worsening pneumonia COMPARISON: CTA chest 05/16/2018 TECHNIQUE: 329 Images stored on PACS. All CT scanners at this facility use dose modulation, iterative reconstruction, and/or weight based dosing when appropriate to reduce radiation dose to as low as reasonably achievable (ALARA). [facility]: Dose Right [facility]: CareDose [facility]: Dose Right [facility]: Teradose 4D [facility]: [employer] LIMITATIONS: None. FINDINGS: The visualized thyroid gland is unremarkable. The mediastinal vasculature enhances normally. No mediastinal or hilar adenopathy. The heart and pericardium are unremarkable. Limited evaluation of the upper abdomen shows diffuse fatty infiltrative change to the liver. Postcholecystectomy changes. Osseous structures of the thorax are grossly intact. No pneumothorax. There are new groundglass opacities in the upper lobes/apices bilaterally, as well as somewhat diffusely throughout the lungs bilaterally. Reticulonodular changes associated with the lung bases and to a lesser degree upper lobes is also present,. Findings likely reflect pneumonitis. No dense consolidative change. No effusion. The visualized airways are patent. IMPRESSION: Rather extensive groundglass opacities bilaterally as well as areas of reticulonodular change consistent with diffuse pneumonitis. No effusion. The visualized airways are patent. Follow-up recommended following appropriate therapy. TECHNICAL DOCUMENTATION: Quality ID # 436: Final reports with documentation of one or more dose reduction techniques (e.g., Automated exposure control, adjustment of the mA and/or kV according to patient size, use of iterative reconstruction technique) copyright 2011 [employer]- All Rights Reserved
[2018-05-21] MEDS: BUSPIRONE HCL 10 MG TABLET PO SCH (23:16)
[2018-05-22] MEDS: TRAZODONE HCL 50 MG TABLET PO SCH ×2 (00:16→21:46)
[2018-05-22] MEDS: IPRATROPIUM/ALBUTEROL 0.5-2.5 MG/3 ML AMPUL NEB SCH ×4 (02:18→19:49)
[2018-05-22 06:20] LABS: ABSOLUTE LYMPHOCYTES (AUTO) 0.9 10^3/uL (0.5-4.7); ABSOLUTE MONOCYTES (AUTO) 0.5 10^3/uL (0.1-1.4); ABSOLUTE NEUT (AUTO) 4.2 10^3/uL (1.7-8.2); BASOPHILS % (AUTO) 0.1 % (0-2); HEMATOCRIT 40.2 % (36.0-47.0); HEMOGLOBIN 13.3 g/dL (12.0-15.5); LYMPHOCYTES % (AUTO) 16.3 % (13-45); MEAN CORPUSCULAR HEMOGLOBIN 28.8 pg (27.0-33.4); MEAN CORPUSCULAR HGB CONC 33.1 g/dL (32.0-36.0); MEAN CORPUSCULAR VOLUME 87 fl (80-97); MONOCYTES % (AUTO) 9.4 % (3-13); PLATELET COUNT 186 10^3/uL (150-450); RED BLOOD COUNT 4.63 10^6/uL (3.72-5.28); RED CELL DISTRIBUTION WIDTH 16.2 % (11.5-14.0); SEGMENTED NEUTROPHILS % (AUTO) 74.2 % (42-78); TOTAL CELLS COUNTED % (AUTO) 100 %; WHITE BLOOD COUNT 5.6 10^3/uL (4.0-10.5)
[2018-05-22 06:47] LABS: ANION GAP 5 (5-19); BLOOD UREA NITROGEN 20 mg/dL (7-20); CALCIUM 8.6 mg/dL (8.4-10.2); CARBON DIOXIDE 35 mmol/L (22-30); CHLORIDE 101 mmol/L (98-107); GLUCOSE 150 mg/dL (75-110); POTASSIUM 4.6 mmol/L (3.6-5.0); SODIUM 141.1 mmol/L (137-145)
[2018-05-22] MEDS: METHYLPREDNISOLONE INJ 40 MG/1 ML SDV IV SCH ×4 (06:48→23:49)
[2018-05-22] MEDS: BUSPIRONE HCL 10 MG TABLET PO SCH ×3 (06:49→21:46)
[2018-05-22] MEDS: BUDESONIDE NEB 0.5 MG/2 ML AMPUL NEB SCH ×2 (09:12→19:49)
[2018-05-22] MEDS: FAMOTIDINE 20 MG TABLET PO SCH ×2 (10:31→21:47)
[2018-05-22] MEDS: MONTELUKAST SODIUM 10 MG TABLET PO SCH (10:31)
[2018-05-22] MEDS: CETIRIZINE 10 MG TABLET PO SCH (10:31)
[2018-05-22] MEDS: CLONAZEPAM 1 MG TABLET PO SCH ×2 (10:32→21:47)
[2018-05-22] MEDS: ENOXAPARIN SODIUM INJ 40 MG/0.4 ML DISP.SYRIN SUBCUT SCH (10:32)
[2018-05-22] MEDS: SERTRALINE HCL 50 MG TABLET PO SCH (10:32)
[2018-05-22 11:37] LABS: ARTERIAL BLOOD BASE EXCESS 8.7 mmol/L; ARTERIAL BLOOD H2CO3 1.52 mmol/L (1.05-1.35); ARTERIAL BLOOD HCO3 34.3 mmol/L (20-24); ARTERIAL BLOOD O2 SATURATION 98.4 % (94-98); ARTERIAL BLOOD PCO2 50.6 mmHg (35-45); ARTERIAL BLOOD PH 7.45 (7.35-7.45); ARTERIAL BLOOD PO2 120.1 mmHg (80-100); ARTERIAL BLOOD TOTAL CO2 35.9 mmol/L (21-25)
[2018-05-22 11:38] LABS: ARTERIAL BLOOD FIO2 4L
[2018-05-22] MEDS: LEVOFLOXACIN 750 MG/D5W RTU 750 MG/150 ML RTUPB IV SCH (11:38)
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
[2018-05-23] MEDS: IPRATROPIUM/ALBUTEROL 0.5-2.5 MG/3 ML AMPUL NEB SCH ×4 (02:08→20:55)
[2018-05-23] MEDS: BUSPIRONE HCL 10 MG TABLET PO SCH ×3 (05:56→21:22)
[2018-05-23] MEDS: METHYLPREDNISOLONE INJ 40 MG/1 ML SDV IV SCH ×4 (05:56→21:29)
[2018-05-23] MEDS: BUDESONIDE NEB 0.5 MG/2 ML AMPUL NEB SCH ×2 (08:49→20:55)
[2018-05-23] MEDS: FAMOTIDINE 20 MG TABLET PO SCH ×2 (09:12→21:22)
[2018-05-23] MEDS: MONTELUKAST SODIUM 10 MG TABLET PO SCH (09:12)
[2018-05-23] MEDS: ENOXAPARIN SODIUM INJ 40 MG/0.4 ML DISP.SYRIN SUBCUT SCH (09:12)
[2018-05-23] MEDS: CETIRIZINE 10 MG TABLET PO SCH (09:12)
[2018-05-23] MEDS: CLONAZEPAM 1 MG TABLET PO SCH (09:12)
[2018-05-23] MEDS: SERTRALINE HCL 50 MG TABLET PO SCH (09:12)
--- NOTE | 2018-05-23 11:04 | ST Inp Modified Barium Swallow ---
Medical Diagnosis - Medical Diagnoses Medical Diagnosis Description & ICD-10 Code(s): COPD without exacerbation, dysphagia (R13.10) Inpatient [facility] [place] - General Date: 05/23/18 Date of Onset: 05/15/18 - History History Obtained From: Patient -: Medical Medications: Medications Reviewed Allergies: Refer to medical record - Subjective Current Nutritional Means: PO Current PO Diet: Regular Current Symptoms: other - shortness of breath Pain: 0/5 - Objective Assessment: Upright, Left Lateral - Food Trials Food Trials Used: Thin liquids, Pureed, Regular The Patient: Was Able to Self Feed - Assessment Labial Function: Within Normal Limits Lingual Function: Within Normal Limits Mandibular Function: Within Normal Limits Dentition: Full Laryngeal Function: clear voicing - Pharyngeal Stage Initiation of Pharyngeal Stage: Normal Decreased Laryngeal Elevation: No Reduced Velo-Pharyngeal Closure: yes, no Reduced Pressure Generation: No Reduced Tongue Base Retraction: No Pre-Swallowing Pooling in Valleculae: None Pre-Swallowing Pooling in Pyriforms: None Reduced Thyro-Hyiod Approximation: No Reduced Epiglottic Excursion: No Reduced Pharyngeal Peristalsis: No Multiple Swallows With: Cleared w/ Dry Swallow - for regular solid Post Swallow Residuals in Valleculae: Mild Post Swallow Residuals in Pyriforms: None - Esophageal Stage Cricophageal Function: Normal Upper Esophageal Transit: Normal Esophageal Stasis/Dysmotility: No Cervical Osteophytes Noted: No - Impression/Summary Laryngeal Penetration: Yes, Flash - with multiple, sequential swallows of thin liquid; not with single sips Tracheal Aspiration: no Patient Presents With: Normal swallow at eval - Recommendations Solid Diet Recommendations: Regular Liquid Diet Recommendations: Thin Regular Diet: Yes Dysphagia Therapy with MACHINING SUPERVISOR: No Recommended Techniques: Fully Upright During Meal Supervision: Independent - Time Total Time: 15 Total Timed Minutes: 15
[2018-05-23] MEDS ORDERED: ALBUTEROL SULFATE HFA (90 MCG/PUFF) 200 PUFF/8.5 GM MDI IH PRN (12:15)
[2018-05-23] MEDS: LEVOFLOXACIN 750 MG/D5W RTU 750 MG/150 ML RTUPB IV SCH (13:10)
--- NOTE | 2018-05-23 13:29 | RADIOLOGY REPORT (SQ) ---
EXAM DESCRIPTION: JOELLE SWALLOW COMPLETED DATE/TIME: 05/23/2018 10:57 am REASON FOR STUDY: dysphagia pneumonia COMPARISON: None. TECHNIQUE: Videofluoroscopic swallowing examination was performed in conjunction with speech patholo gy. Videofluoroscopic imaging was obtained and reviewed and these are the findings: RADIATION DOSE: 1 minutes 2 seconds of fluoroscopy was used. 1 images saved to PACS. LIMITATIONS: None FINDINGS: The patient was brought into the fluoro room and placed upright on a modified barium swall ow chair. The patient was then given multiple consistencies mixed with barium to swallow under live fluoroscopic video guidance. According to the Speech Pathologist there was flash laryngeal penetrati on with thin liquids. No aspiration seen. IMPRESSION: FLASH LARYNGEAL PENETRATION WITHOUT ASPIRATION.PLEASE SEE SPEECH PATHOLOGIST REPORT FOR OTHER FINDINGS AND RECOMMENDATIONS. COMMENT: Quality ID 145: Final reports for procedures using fluoroscopy that document radiation exp osure indices, or exposure time and number of fluorographic images (if radiation exposure indices are not available) TECHNICAL DOCUMENTATION: JOB ID: [id number] [employer]- All Rights Reserved Reading location - IP/workstation name: [email or web address] [id number]
--- NOTE | 2018-05-23 13:43 | PDOC PROGRESS REPORT ---
Subjective Progress Note for:: 05/23/18 Subjective:: 05/23/2018-no acute events in the last 24 hours. Patient is afebrile. Patient still using BiPAP on and off basis. Patient is not on home oxygen at home. Reason For Visit: COPD EXACERBATION Physical Exam Vital Signs: Temp Pulse Resp BP Pulse Ox 98.0 F 91 18 176/96 H 95 05/23/18 11:50 05/23/18 11:50 05/23/18 11:50 05/23/18 11:50 05/23/18 11:50 Pulse Oximeter Nocturnal Start: 05/22/18 15:03 Freq: RTQ4 Status: Complete Protocol: Document 05/23/18 04:00 LRO (Rec: 05/23/18 04:16 LRO [id number]) Nocturnal Pulse Oximetry Equipment Usage Equipment in Use Oxygen Delivery Method (includes room Nasal Cannula air) O2 Sat by Pulse Oximetry (92-100) 94 Continuous SpO2 Machine # 9 Intake & Output 05/22/18 05/23/18 05/24/18 06:59 06:59 06:59 Intake Total 2248 1800 Balance 2248 1800 Weight 128.2 kg 128.2 kg General appearance: PRESENT: other - Morbidly obese female. Head exam: PRESENT: atraumatic Eye exam: PRESENT: PERRLA Mouth exam: PRESENT: moist, tongue midline Neck exam: ABSENT: carotid bruit, JVD, lymphadenopathy, thyromegaly Respiratory exam: PRESENT: decreased breath sounds Cardiovascular exam: PRESENT: tachycardia GI/Abdominal exam: PRESENT: normal bowel sounds, soft. ABSENT: distended, guarding, mass, organolmegaly, rebound, tenderness Extremities exam: PRESENT: full ROM. ABSENT: calf tenderness, clubbing, pedal edema Neurological exam: PRESENT: alert, awake, oriented to person, oriented to place, oriented to time, oriented to situation, CN II-XII grossly intact. ABSENT: motor sensory deficit Psychiatric exam: PRESENT: appropriate affect, normal mood. ABSENT: homicidal ideation, suicidal ideation Results Laboratory Results: 05/22/18 06:02 05/22/18 06:02 05/16/18 06:30 Troponin I < 0.012 Impressions: Chest/Abdomen CTA 05/16/18 00:00 IMPRESSION: No evidence of pulmonary embolus. Subtle mild centrilobular ground-glass opacities most conspicuous in the left upper lobe and lingula likely infectious/inflammatory. Chest CT 05/21/18 00:00 IMPRESSION: Rather extensive groundglass opacities bilaterally as well as areas of reticulonodular change consistent with diffuse pneumonitis. No effusion. The visualized airways are patent. Follow-up recommended following appropriate therapy. TECHNICAL DOCUMENTATION: Quality ID # 436: Final reports with documentation of one or more dose reduction techniques (e.g., Automated exposure control, adjustment of the mA and/or kV according to patient size, use of iterative reconstruction technique) copyright 2011 [employer]- All Rights Reserved Chest X-Ray 05/21/18 00:00 IMPRESSION: 1. No significant interval changes since the previous examination dated 05/16/2018. NO ACUTE RADIOGRAPHIC FINDING IN THE CHEST. Modified Barium Swallow 05/23/18 00:00 IMPRESSION: FLASH LARYNGEAL PENETRATION WITHOUT ASPIRATION.PLEASE SEE SPEECH PATHOLOGIST REPORT FOR OTHER FINDINGS AND RECOMMENDATIONS. Assessment & Plan - Diagnosis (1) Acute and chronic respiratory failure with hypoxia Is this a current diagnosis for this admission?: Yes Plan: 05/23/2018-patient was admitted with acute on chronic respiratory failure with hypoxia. Most likely secondary to COPD exacerbation and possible underlying pneumonia. Patient is still requiring BiPAP on regular basis. Pulse ox is 93% on [address] Boyd was done. Patient is presently on levofloxacin 750 mg IV daily, albuterol nebulizations every 3 hours as needed, DuoNeb nebulizations every 6 hours. Patient is on IV Solu-Medrol 80 mg every 6 hours. To decrease the IV Solu-Medrol to 40 mg every 6 hours. (2) COPD exacerbation Is this a current diagnosis for this admission?: Yes Plan: 05/23/2018-patient was admitted with COPD exacerbation. Presently on IV Solu- Medrol 40 mg every 8 hours, albuterol nebulizations and DuoNeb nebulizations. Pulmonary consult was done. Allergy panel was requested. Pulse ox is 93% 3 L. (3) Morbid obesity with BMI of 45.0-49.9, adult Is this a current diagnosis for this admission?: Yes Plan: 05/23/2018-patient's BMI is more than 45 diet exercise weight loss and lifestyle modifications are discussed. Dietary consult was requested. Modified barium swallow was done no problem with swallowing is noted. (4) Obstructive sleep apnea Is this a current diagnosis for this admission?: Yes Plan: 05/23/2018-patient has a history of obstructive sleep apnea not on CPAP at home. We need to arrange for sleep study prior to the discharge. Dr. Boyd is already on board may be we can arrange for a CPAP at home before discharge. (5) Tobacco dependence Is this a current diagnosis for this admission?: Yes Plan: 05/23/2018-patient is a chronic smoker smokes more than a pack per day patient is a nicotine patch. Smoking counseling was provided for more than 10 minutes. She was strongly advised to quit smoking. (6) Pneumonia Qualifiers: Pneumonia type: due to unspecified organism Laterality: bilateral Is this a current diagnosis for this admission?: Yes Plan: 05/23/2018-patient has most likely community-acquired pneumonia she is on IV levofloxacin 750 mg daily. The blood cultures are negative. She is unable to give sputum culture. - Time Time Spent with patient: 15-24 minutes Smoking Cessation Education: over 10 minutes Medications reviewed and adjusted accordingly: Yes Anticipated discharge: Home
[2018-05-23] MEDS ORDERED: (PENDING PHARMACY ID) (Fluticasone/Salmeterol [Advair Hfa 230-21 Mcg Inhaler] 2 PUFF) IH SCH (18:00)
[2018-05-23] MEDS ORDERED: HYDRALAZINE HCL INJ/PF 20 MG/1 ML SDV IV PRN (18:20)
[2018-05-23] MEDS: GUAIFENESIN 600 MG TABLET.SA PO SCH (21:22)
[2018-05-23] MEDS: TRAZODONE HCL 50 MG TABLET PO SCH (21:22)
[2018-05-23] MEDS: LORAZEPAM INJ 2 MG/1 ML VIAL IV PRN (21:26)
[2018-05-23] MEDS: FLUTICASONE NASAL SPRAY 50 MCG/SPRY 120 SPRAY/16 GM NASL SCH (22:50)
[2018-05-24] MEDS: IPRATROPIUM/ALBUTEROL 0.5-2.5 MG/3 ML AMPUL NEB SCH ×4 (01:41→19:19)
[2018-05-24] MEDS: METHYLPREDNISOLONE INJ 40 MG/1 ML SDV IV SCH ×2 (05:50→21:33)
[2018-05-24] MEDS: BUSPIRONE HCL 10 MG TABLET PO SCH ×3 (05:50→21:32)
[2018-05-24 06:54] LABS: HEMATOCRIT 41.4 % (36.0-47.0); HEMOGLOBIN 13.6 g/dL (12.0-15.5); MEAN CORPUSCULAR HEMOGLOBIN 28.6 pg (27.0-33.4); MEAN CORPUSCULAR HGB CONC 32.9 g/dL (32.0-36.0); MEAN CORPUSCULAR VOLUME 87 fl (80-97); PLATELET COUNT 242 10^3/uL (150-450); RED BLOOD COUNT 4.76 10^6/uL (3.72-5.28); RED CELL DISTRIBUTION WIDTH 16.4 % (11.5-14.0); WHITE BLOOD COUNT 7.8 10^3/uL (4.0-10.5)
[2018-05-24 07:17] LABS: ABSOLUTE LYMPHOCYTES# (MANUAL) 1.1 10^3/uL (0.5-4.7); ABSOLUTE MONOCYTES # (MANUAL) 0.5 10^3/uL (0.1-1.4); ABSOLUTE NEUTROPHILS# (MANUAL) 6.2 10^3/uL (1.7-8.2); ANISOCYTOSIS 1+; BASOPHILS % (MANUAL) 0 % (0-2); EOSINOPHILS % (MANUAL) 0 % (0-6); LYMPHOCYTES % (MANUAL) 14 % (13-45); MONOCYTES % (MANUAL) 7 % (3-13); PLATELET COMMENT ADEQUATE; SEGMENTED NEUTROPHILS % (MAN) 79 % (42-78); TOTAL CELLS COUNTED 100; TOXIC VACUOLATION PRESENT
[2018-05-24 07:28] LABS: ALANINE AMINOTRANSFERASE 33 U/L (9-52); ALBUMIN 3.5 g/dL (3.5-5.0); ALKALINE PHOSPHATASE 61 U/L (38-126); ANION GAP 6 (5-19); ASPARTATE AMINO TRANSFERASE 14 U/L (14-36); BILIRUBIN,DIRECT 0.2 mg/dL (0.0-0.4); BILIRUBIN,TOTAL 0.3 mg/dL (0.2-1.3); BLOOD UREA NITROGEN 23 mg/dL (7-20); CALCIUM 9.1 mg/dL (8.4-10.2); CARBON DIOXIDE 35 mmol/L (22-30); CHLORIDE 100 mmol/L (98-107); GLUCOSE 179 mg/dL (75-110); POTASSIUM 4.7 mmol/L (3.6-5.0); SODIUM 140.6 mmol/L (137-145); TOTAL PROTEIN 5.9 g/dL (6.3-8.2)
[2018-05-24] MEDS: BUDESONIDE NEB 0.5 MG/2 ML AMPUL NEB SCH ×2 (07:48→19:19)
[2018-05-24] MEDS: GUAIFENESIN 600 MG TABLET.SA PO SCH ×2 (09:37→21:33)
[2018-05-24] MEDS: FAMOTIDINE 20 MG TABLET PO SCH ×2 (09:37→21:33)
[2018-05-24] MEDS: CETIRIZINE 10 MG TABLET PO SCH (09:37)
[2018-05-24] MEDS: SERTRALINE HCL 50 MG TABLET PO SCH (09:37)
[2018-05-24] MEDS: FLUTICASONE NASAL SPRAY 50 MCG/SPRY 120 SPRAY/16 GM NASL SCH ×2 (09:38→21:33)
[2018-05-24] MEDS: MONTELUKAST SODIUM 10 MG TABLET PO SCH (09:38)
[2018-05-24] MEDS: ENOXAPARIN SODIUM INJ 40 MG/0.4 ML DISP.SYRIN SUBCUT SCH (09:38)
[2018-05-24 10:21] LABS: ARTERIAL BLOOD BASE EXCESS 6.1 mmol/L; ARTERIAL BLOOD H2CO3 1.67 mmol/L (1.05-1.35); ARTERIAL BLOOD HCO3 32.7 mmol/L (20-24); ARTERIAL BLOOD PCO2 55.4 mmHg (35-45); ARTERIAL BLOOD PH 7.39 (7.35-7.45); ARTERIAL BLOOD PO2 113.6 mmHg (80-100); ARTERIAL BLOOD TOTAL CO2 34.4 mmol/L (21-25)
[2018-05-24 10:24] LABS: ARTERIAL BLOOD FIO2 35%
--- NOTE | 2018-05-24 12:16 | PDOC PROGRESS REPORT ---
Subjective Progress Note for:: 05/24/18 Subjective:: 05/23/2018-no acute events in the last 24 hours. Patient is afebrile. Patient still using BiPAP on and off basis. Patient is not on home oxygen at home. 05/24/2018-no acute events in the last 24 hours. Patient is afebrile. Patient still on BiPAP. Pulmonary consult was done to see if the patient is to go home on either CPAP or BiPAP. ABG done today on BiPAP shows pH of 7.39/PCO2 55.4/PO2 113/bicarb is 32.7. Reason For Visit: COPD EXACERBATION Physical Exam Vital Signs: Temp Pulse Resp BP Pulse Ox 97.3 F 83 20 149/89 H 96 05/24/18 07:17 05/24/18 07:17 05/24/18 07:17 05/24/18 07:17 05/24/18 07:17 Pulse Oximeter Nocturnal Start: 05/22/18 15:03 Freq: RTQ4 Status: Complete Protocol: Document 05/23/18 04:00 LRO (Rec: 05/23/18 04:16 LRO [id number]) Nocturnal Pulse Oximetry Equipment Usage Equipment in Use Oxygen Delivery Method (includes room Nasal Cannula air) O2 Sat by Pulse Oximetry (92-100) 94 Continuous SpO2 Machine # 9 Intake & Output 05/23/18 05/24/18 05/25/18 06:59 06:59 06:59 Intake Total 1800 1750 Balance 1800 1750 Weight 128.2 kg 128.2 kg General appearance: PRESENT: other - Morbidly obese female on BiPAP. Head exam: PRESENT: atraumatic Eye exam: PRESENT: PERRLA Mouth exam: PRESENT: moist Teeth exam: PRESENT: poor dentation Neck exam: ABSENT: carotid bruit, JVD, lymphadenopathy, thyromegaly Respiratory exam: PRESENT: decreased breath sounds, wheezes Cardiovascular exam: PRESENT: tachycardia GI/Abdominal exam: PRESENT: normal bowel sounds, soft. ABSENT: distended, guarding, mass, organolmegaly, rebound, tenderness Extremities exam: PRESENT: full ROM. ABSENT: calf tenderness, clubbing, pedal edema Psychiatric exam: PRESENT: appropriate affect, normal mood. ABSENT: homicidal ideation, suicidal ideation Results Laboratory Results: 05/24/18 06:33 05/24/18 06:33 05/24/18 05/24/18 05/24/18 06:33 06:33 10:00 WBC 7.8 RBC 4.76 Hgb 13.6 Hct 41.4 MCV 87 MCH 28.6 MCHC 32.9 RDW 16.4 H Plt Count 242 Seg Neutrophils % Not Reportable Lymphocytes % Not Reportable Monocytes % Not Reportable Eosinophils % Not Reportable Basophils % Not Reportable Absolute Neutrophils Not Reportable Absolute Lymphocytes Not Reportable Absolute Monocytes Not Reportable Absolute Eosinophils Not Reportable Absolute Basophils Not Reportable Carbonic Acid 1.67 H HCO3/H2CO3 Ratio 19:1 ABG pH 7.39 ABG pCO2 55.4 H ABG pO2 113.6 H ABG HCO3 32.7 H ABG O2 Saturation 98.0 ABG Base Excess 6.1 FiO2 35% Sodium 140.6 Potassium 4.7 Chloride 100 Carbon Dioxide 35 H Anion Gap 6 BUN 23 H Creatinine 0.76 Est GFR ( Amer) > 60 Est GFR (Non-Af Amer) > 60 Glucose 179 H Calcium 9.1 Magnesium 2.5 H Total Bilirubin 0.3 AST 14 ALT 33 Alkaline Phosphatase 61 Total Protein 5.9 L Albumin 3.5 05/16/18 06:30 Troponin I < 0.012 Impressions: Chest/Abdomen CTA 05/16/18 00:00 IMPRESSION: No evidence of pulmonary embolus. Subtle mild centrilobular ground-glass opacities most conspicuous in the left u pper lobe and lingula likely infectious/inflammatory. Chest CT 05/21/18 00:00 IMPRESSION: Rather extensive groundglass opacities bilaterally as well as areas of reticulonodular change consistent with diffuse pneumonitis. No effusion. The visualized airways are patent. Follow-up recommended following appropriate therapy. TECHNICAL DOCUMENTATION: Quality ID # 436: Final reports with documentation of one or more dose reduction techniques (e.g., Automated exposure control, adjustment of the mA and/or kV according to patient size, use of iterative reconstruction technique) copyright 2011 [employer]- All Rights Reserved Chest X-Ray 05/21/18 00:00 IMPRESSION: 1. No significant interval changes since the previous examination dated 05/16/2018. NO ACUTE RADIOGRAPHIC FINDING IN THE CHEST. Modified Barium Swallow 05/23/18 00:00 IMPRESSION: FLASH LARYNGEAL PENETRATION WITHOUT ASPIRATION.PLEASE SEE SPEECH PATHOLOGIST REPORT FOR OTHER FINDINGS AND RECOMMENDATIONS. Assessment & Plan - Diagnosis (1) Acute and chronic respiratory failure with hypoxia Is this a current diagnosis for this admission?: Yes Plan: 05/23/2018-patient was admitted with acute on chronic respiratory failure with hypoxia. Most likely secondary to COPD exacerbation and possible underlying pneumonia. Patient is still requiring BiPAP on regular basis. Pulse ox is 93% on [address] Boyd was done. Patient is presently on levofloxacin 750 mg IV daily, albuterol nebulizations every 3 hours as needed, DuoNeb nebulizations every 6 hours. Patient is on IV Solu-Medrol 80 mg every 6 hours. To decrease the IV Solu-Medrol to 40 mg every 6 hours. 05/24/2018-patient was admitted with acute on chronic respiratory failure with hypoxia and hypercapnia most likely secondary to COPD exacerbation and she might have also obesity associated hypoventilation syndrome. Medical consult was done. Pulse ox today on 4 L is 96%. (2) COPD exacerbation Is this a current diagnosis for this admission?: Yes Plan: 05/23/2018-patient was admitted with COPD exacerbation. Presently on IV Solu- Medrol 40 mg every 8 hours, albuterol nebulizations and DuoNeb nebulizations. Pulmonary consult was done. Allergy panel was requested. Pulse ox is 93% 3 L. 05/24/2018-patient admitted with COPD exacerbation COPD most likely to smoking. Presently on albuterol nebulizations, DuoNeb nebulizations and IV Solu-Medrol 40 mg every 8 hours. Pulse ox is 96% 4 L pulmonary consult was done. plan Is to continue the present management. (3) Morbid obesity with BMI of 45.0-49.9, adult Is this a current diagnosis for this admission?: Yes Plan: 05/23/2018-patient's BMI is more than 45 diet exercise weight loss and lifestyle modifications are discussed. Dietary consult was requested. Modified barium swallow was done no problem with swallowing is noted. 05/24/2018-patient BMI is close to 50 diet exercise weight loss lifestyle modifications are discussed with the patient. (4) Obstructive sleep apnea Is this a current diagnosis for this admission?: Yes Plan: 05/23/2018-patient has a history of obstructive sleep apnea not on CPAP at home. We need to arrange for sleep study prior to the discharge. Dr. Boyd is already on board may be we can arrange for a CPAP at home before discharge. 05/24/2018 patient has morbid obesity she might have obstructive sleep apnea not on oxygen not on CPAP at home. She may need a sleep study appointment prior to discharge. We will follow the living specialist recommendations. (5) Tobacco dependence Is this a current diagnosis for this admission?: Yes (6) Pneumonia Qualifiers: Pneumonia type: due to unspecified organism Laterality: bilateral Is this a current diagnosis for this admission?: Yes Plan: 05/23/2018-patient has most likely community-acquired pneumonia she is on IV levofloxacin 750 mg daily. The blood cultures are negative. She is unable to give sputum culture. 05/24/2018 patient most likely have a community-acquired pneumonia blood cultures are negative. Unable to do the sputum cultures. Presently on IV levofloxacin 750 mg daily. Plan is to continue the present management. - Time Time Spent with patient: 15-24 minutes Smoking Cessation Education: over 10 minutes Medications reviewed and adjusted accordingly: Yes Anticipated discharge: Home
[2018-05-24] MEDS ORDERED: CLONAZEPAM 1 MG TABLET PO ONE (21:00)
[2018-05-24] MEDS: TRAZODONE HCL 50 MG TABLET PO SCH (21:32)
[2018-05-24] MEDS: LORAZEPAM INJ 2 MG/1 ML VIAL IV PRN (23:07)
[2018-05-25] MEDS: IPRATROPIUM/ALBUTEROL 0.5-2.5 MG/3 ML AMPUL NEB SCH ×4 (02:10→19:04)
[2018-05-25] MEDS: BUSPIRONE HCL 10 MG TABLET PO SCH ×3 (05:16→23:01)
[2018-05-25] MEDS: BUDESONIDE NEB 0.5 MG/2 ML AMPUL NEB SCH ×2 (08:29→19:04)
[2018-05-25] MEDS: METHYLPREDNISOLONE INJ 40 MG/1 ML SDV IV SCH ×2 (09:10→23:02)
[2018-05-25] MEDS: SERTRALINE HCL 50 MG TABLET PO SCH (09:11)
[2018-05-25] MEDS: CLONAZEPAM 1 MG TABLET PO SCH ×3 (09:11→18:27)
[2018-05-25] MEDS: CETIRIZINE 10 MG TABLET PO SCH (09:11)
[2018-05-25] MEDS: GUAIFENESIN 600 MG TABLET.SA PO SCH ×2 (09:11→23:01)
[2018-05-25] MEDS: MONTELUKAST SODIUM 10 MG TABLET PO SCH (09:11)
[2018-05-25] MEDS: FAMOTIDINE 20 MG TABLET PO SCH ×2 (09:11→23:02)
[2018-05-25] MEDS: ENOXAPARIN SODIUM INJ 40 MG/0.4 ML DISP.SYRIN SUBCUT SCH (09:11)
[2018-05-25] MEDS: FLUTICASONE NASAL SPRAY 50 MCG/SPRY 120 SPRAY/16 GM NASL SCH ×2 (09:12→23:02)
--- NOTE | 2018-05-25 11:57 | PDOC PROGRESS REPORT ---
Subjective Progress Note for:: 05/21/18 Subjective:: 05/23/2018-no acute events in the last 24 hours. Patient is afebrile. Patient still using BiPAP on and off basis. Patient is not on home oxygen at home. 05/24/2018-no acute events in the last 24 hours. Patient is afebrile. Patient still on BiPAP. Pulmonary consult was done to see if the patient is to go home on either CPAP or BiPAP. ABG done today on BiPAP shows pH of 7.39/PCO2 55.4/PO2 113/bicarb is 32.7. 05/25/2018 no acute events in last 24 hours. Patient still on BiPAP. Probably she may have to go home on BiPAP and on continuous home oxygen. Reason For Visit: COPD EXACERBATION Physical Exam Vital Signs: Temp Pulse Resp BP Pulse Ox 97.7 F 104 H 20 144/78 H 96 05/25/18 07:19 05/25/18 07:19 05/25/18 07:19 05/25/18 07:19 05/25/18 07:19 Pulse Oximeter Nocturnal Start: 05/22/18 15:03 Freq: RTQ4 Status: Complete Protocol: Document 05/23/18 04:00 LRO (Rec: 05/23/18 04:16 LRO [id number]) Nocturnal Pulse Oximetry Equipment Usage Equipment in Use Oxygen Delivery Method (includes room Nasal Cannula air) O2 Sat by Pulse Oximetry (92-100) 94 Continuous SpO2 Machine # 9 Intake & Output 05/24/18 05/25/18 05/26/18 06:59 06:59 06:59 Intake Total 1750 1687 Balance 1750 1687 Weight 128.2 kg 125.2 kg General appearance: PRESENT: no acute distress, other - Morbidly obese female Head exam: PRESENT: atraumatic Eye exam: PRESENT: PERRLA Mouth exam: PRESENT: moist, tongue midline Neck exam: ABSENT: carotid bruit, JVD, lymphadenopathy, thyromegaly Respiratory exam: PRESENT: clear to auscultation caitlyn. ABSENT: rales, rhonchi, wheezes Cardiovascular exam: PRESENT: tachycardia GI/Abdominal exam: PRESENT: normal bowel sounds, soft. ABSENT: distended, guarding, mass, organolmegaly, rebound, tenderness Extremities exam: PRESENT: full ROM. ABSENT: calf tenderness, clubbing, pedal edema Neurological exam: PRESENT: alert, awake, oriented to person, oriented to place, oriented to time, oriented to situation, CN II-XII grossly intact. ABSENT: motor sensory deficit Psychiatric exam: PRESENT: appropriate affect, normal mood. ABSENT: homicidal ideation, suicidal ideation Results Laboratory Results: 05/24/18 06:33 05/24/18 06:33 05/16/18 06:30 Troponin I < 0.012 Impressions: Chest/Abdomen CTA 05/16/18 00:00 IMPRESSION: No evidence of pulmonary embolus. Subtle mild centrilobular ground-glass opacities most conspicuous in the left upper lobe and lingula likely infectious/inflammatory. Chest CT 05/21/18 00:00 IMPRESSION: Rather extensive groundglass opacities bilaterally as well as areas of reticulonodular change consistent with diffuse pneumonitis. No effusion. The visualized airways are patent. Follow-up recommended following appropriate therapy. TECHNICAL DOCUMENTATION: Quality ID # 436: Final reports with documentation of one or more dose reduction techniques (e.g., Automated exposure control, adjustment of the mA and/or kV according to patient size, use of iterative reconstruction technique) copyright 2011 [employer]- All Rights Reserved Chest X-Ray 05/21/18 00:00 IMPRESSION: 1. No significant interval changes since the previous examination dated 05/16/2018. NO ACUTE RADIOGRAPHIC FINDING IN THE CHEST. Modified Barium Swallow 05/23/18 00:00 IMPRESSION: FLASH LARYNGEAL PENETRATION WITHOUT ASPIRATION.PLEASE SEE SPEECH PATHOLOGIST REPORT FOR OTHER FINDINGS AND RECOMMENDATIONS. Assessment & Plan - Diagnosis (1) Acute and chronic respiratory failure with hypoxia Is this a current diagnosis for this admission?: Yes Plan: 05/23/2018-patient was admitted with acute on chronic respiratory failure with hypoxia. Most likely secondary to COPD exacerbation and possible underlying pneumonia. Patient is still requiring BiPAP on regular basis. Pulse ox is 93% on [address] Boyd was done. Patient is presently on levofloxacin 750 mg IV daily, albuterol nebulizations every 3 hours as needed, DuoNeb nebulizations every 6 hours. Patient is on IV Solu-Medrol 80 mg every 6 hours. To decrease the IV Solu-Medrol to 40 mg every 6 hours. 05/24/2018-patient was admitted with acute on chronic respiratory failure with hypoxia and hypercapnia most likely secondary to COPD exacerbation and she might have also obesity associated hypoventilation syndrome. Medical consult was done. Pulse ox today on 4 L is 96%. 05/25/2018-this 52-year-old female morbidly obese female with history of COPD secondary to chronic smoking admitted for acute on chronic respiratory failure with hypoxia and hypercapnia. She might have a underlying obesity associated hypoventilation syndrome. Consultation with Dr. Boyd was done in my opinion she needs continuous home oxygen also needs CPAP at night. I will talk to the social media coordinator about making those arrangements tomorrow. (2) COPD exacerbation Is this a current diagnosis for this admission?: Yes Plan: 05/23/2018-patient was admitted with COPD exacerbation. Presently on IV Solu- Medrol 40 mg every 8 hours, albuterol nebulizations and DuoNeb nebulizations. Pulmonary consult was done. Allergy panel was requested. Pulse ox is 93% 3 L. 05/24/2018-patient admitted with COPD exacerbation COPD most likely to smoking. Presently on albuterol nebulizations, DuoNeb nebulizations and IV Solu-Medrol 40 mg every 8 hours. Pulse ox is 96% 4 L pulmonary consult was done. plan Is to continue the present management. 05/25/2018-patient has history of COPD secondary to smoking not on home oxygen. Presently she is on 4 L oxygen pulse ox is 96%. Even with minimum activity pulse ox are dropping to 80s. (3) Morbid obesity with BMI of 45.0-49.9, adult Is this a current diagnosis for this admission?: Yes Plan: 05/23/2018-patient's BMI is more than 45 diet exercise weight loss and lifestyle modifications are discussed. Dietary consult was requested. Modified barium swallow was done no problem with swallowing is noted. 05/24/2018-patient BMI is close to 50 diet exercise weight loss lifestyle modifications are discussed with the patient. 05/25/2018-diet exercise weight loss lifestyle modifications are discussed with the patient again today. Dietary consult was done while she was here in the hospital. (4) Obstructive sleep apnea Is this a current diagnosis for this admission?: Yes Plan: 05/23/2018-patient has a history of obstructive sleep apnea not on CPAP at home. We need to arrange for sleep study prior to the discharge. Dr. Boyd is already on board may be we can arrange for a CPAP at home before discharge. 05/24/2018 patient has morbid obesity she might have obstructive sleep apnea not on oxygen not on CPAP at home. She may need a sleep study appointment prior to discharge. We will follow the control panel operator crude unit recommendations. 05/25/2018-patient has morbid obesity might have hypoventilation syndrome she may need to go home on CPAP. Sees need a sleep studies as an outpatient. (5) Tobacco dependence Is this a current diagnosis for this admission?: Yes (6) Pneumonia Qualifiers: Pneumonia type: due to unspecified organism Laterality: bilateral Is this a current diagnosis for this admission?: Yes Plan: 05/23/2018-patient has most likely community-acquired pneumonia she is on IV levofloxacin 750 mg daily. The blood cultures are negative. She is unable to give sputum culture. 05/24/2018 patient most likely have a community-acquired pneumonia blood cultures are negative. Unable to do the sputum cultures. Presently on IV levofloxacin 750 mg daily. Plan is to continue the present management. 05/25/2018 CT scan was done on 05/21/2018 it shows extensive groundglass opacities bilaterally as well as areas of reticulonodular change consistent with a diffuse pneumonitis. Presently on levofloxacin 750 mg IV daily. PPD was negative for TB. - Time Time Spent with patient: 15-24 minutes Medications reviewed and adjusted accordingly: Yes Anticipated discharge: Home, Home with Homehealth
[2018-05-25] MEDS: TRAZODONE HCL 50 MG TABLET PO SCH (23:01)
[2018-05-25] MEDS: LORAZEPAM INJ 2 MG/1 ML VIAL IV PRN (23:02)
[2018-05-25 23:36] LABS: M001-IGE PENICILLIUM CHRYSOGEN <0.10 kU/L (Class 0); M002-IGE CLADOSPORIUM HERBARUM <0.10 kU/L (Class 0); M003-IGE ASPERGILLUS FUMIGATUS <0.10 kU/L (Class 0); M004-IGE MUCOR RACEMOSUS <0.10 kU/L (Class 0); M005-IGE CANDIDA ALBICANS <0.10 kU/L (Class 0); M006-IGE ALTERNARIA ALTERNATA <0.10 kU/L (Class 0); M009-IGE FUSARIUM PROLIFERATUM <0.10 kU/L (Class 0); M012-IGE AUREOBASIDI PULLULANS <0.10 kU/L (Class 0); M013-IGE PHOMA BETAE <0.10 kU/L (Class 0); M014-IGE EPICOCCUM PURPURASCEN <0.10 kU/L (Class 0)
[2018-05-26] MEDS: IPRATROPIUM/ALBUTEROL 0.5-2.5 MG/3 ML AMPUL NEB SCH ×4 (01:42→19:13)
[2018-05-26] MEDS: BUSPIRONE HCL 10 MG TABLET PO SCH ×3 (05:26→22:32)
[2018-05-26 06:05] LABS: HEMATOCRIT 40.7 % (36.0-47.0); HEMOGLOBIN 13.2 g/dL (12.0-15.5); MEAN CORPUSCULAR HEMOGLOBIN 28.3 pg (27.0-33.4); MEAN CORPUSCULAR HGB CONC 32.4 g/dL (32.0-36.0); MEAN CORPUSCULAR VOLUME 88 fl (80-97); PLATELET COUNT 212 10^3/uL (150-450); RED BLOOD COUNT 4.66 10^6/uL (3.72-5.28); RED CELL DISTRIBUTION WIDTH 16.7 % (11.5-14.0); WHITE BLOOD COUNT 8.3 10^3/uL (4.0-10.5)
[2018-05-26 06:27] LABS: ALANINE AMINOTRANSFERASE 27 U/L (9-52); ALBUMIN 3.3 g/dL (3.5-5.0); ALKALINE PHOSPHATASE 67 U/L (38-126); ANION GAP 6 (5-19); ASPARTATE AMINO TRANSFERASE 12 U/L (14-36); BILIRUBIN,DIRECT 0.3 mg/dL (0.0-0.4); BILIRUBIN,TOTAL 0.5 mg/dL (0.2-1.3); BLOOD UREA NITROGEN 22 mg/dL (7-20); CARBON DIOXIDE 34 mmol/L (22-30); CHLORIDE 99 mmol/L (98-107); GLUCOSE 204 mg/dL (75-110); POTASSIUM 5.1 mmol/L (3.6-5.0); SODIUM 138.8 mmol/L (137-145); TOTAL PROTEIN 5.9 g/dL (6.3-8.2)
[2018-05-26 06:34] LABS: ABSOLUTE LYMPHOCYTES# (MANUAL) 0.9 10^3/uL (0.5-4.7); ABSOLUTE MONOCYTES # (MANUAL) 0.4 10^3/uL (0.1-1.4); ANISOCYTOSIS 2+; BASOPHILS % (MANUAL) 0 % (0-2); EOSINOPHILS % (MANUAL) 0 % (0-6); LYMPHOCYTES % (MANUAL) 11 % (13-45); MONOCYTES % (MANUAL) 5 % (3-13); PLATELET COMMENT ADEQUATE; POLYCHROMASIA 1+; SEGMENTED NEUTROPHILS % (MAN) 84 % (42-78); TOTAL CELLS COUNTED 100
[2018-05-26 07:16] LABS: M010-IGE STEMPHYLIUM HERBARUM <0.10 kU/L (Class 0)
[2018-05-26] MEDS: BUDESONIDE NEB 0.5 MG/2 ML AMPUL NEB SCH ×2 (07:59→19:13)
[2018-05-26] MEDS: CLONAZEPAM 1 MG TABLET PO SCH ×3 (10:18→17:43)
[2018-05-26] MEDS: MONTELUKAST SODIUM 10 MG TABLET PO SCH (10:18)
[2018-05-26] MEDS: FAMOTIDINE 20 MG TABLET PO SCH ×2 (10:18→22:33)
[2018-05-26] MEDS: SERTRALINE HCL 50 MG TABLET PO SCH (10:18)
[2018-05-26] MEDS: CETIRIZINE 10 MG TABLET PO SCH (10:18)
[2018-05-26] MEDS: GUAIFENESIN 600 MG TABLET.SA PO SCH ×2 (10:18→22:33)
[2018-05-26] MEDS: FLUTICASONE NASAL SPRAY 50 MCG/SPRY 120 SPRAY/16 GM NASL SCH ×2 (10:19→22:33)
[2018-05-26] MEDS: ENOXAPARIN SODIUM INJ 40 MG/0.4 ML DISP.SYRIN SUBCUT SCH (10:19)
[2018-05-26] MEDS: METHYLPREDNISOLONE INJ 40 MG/1 ML SDV IV SCH ×2 (10:20→11:08)
--- NOTE | 2018-05-26 10:32 | PDOC PROGRESS REPORT ---
Subjective Progress Note for:: 05/26/18 Subjective:: Patient is happy to have BiPAP and enjoys although she does forget from time to time to put it on when she is sleeping Reason For Visit: COPD EXACERBATION Physical Exam Vital Signs: Temp Pulse Resp BP Pulse Ox 98.0 F 86 24 H 151/75 H 96 05/26/18 07:24 05/26/18 07:59 05/26/18 07:59 05/26/18 07:24 05/26/18 07:59 Pulse Oximeter Nocturnal Start: 05/22/18 15:03 Freq: RTQ4 Status: Complete Protocol: Document 05/23/18 04:00 LRO (Rec: 05/23/18 04:16 LRO [id number]) Nocturnal Pulse Oximetry Equipment Usage Equipment in Use Oxygen Delivery Method (includes room Nasal Cannula air) O2 Sat by Pulse Oximetry (92-100) 94 Continuous SpO2 Machine # 9 Intake & Output 05/25/18 05/26/18 05/27/18 06:59 06:59 06:59 Intake Total 1687 1550 Balance 1687 1550 Weight 125.2 kg 125.1 kg General appearance: PRESENT: no acute distress, cooperative, disheveled, morbidly obese Head exam: PRESENT: atraumatic, normocephalic Eye exam: PRESENT: conjunctiva pale, EOMI. ABSENT: nystagmus, periorbital swelling, scleral icterus Mouth exam: PRESENT: dry mucosa, neck supple, tongue midline Neck exam: ABSENT: carotid bruit, JVD, lymphadenopathy, thyromegaly, tracheal deviation, tracheostomy Respiratory exam: PRESENT: decreased breath sounds, prolonged expiratory phas, rhonchi, symmetrical, unlabored. ABSENT: rales, retraction, stridor, tachypnea Cardiovascular exam: PRESENT: RRR, +S1, +S2. ABSENT: tachycardia Pulses: PRESENT: normal radial pulses GI/Abdominal exam: PRESENT: soft. ABSENT: tenderness Extremities exam: PRESENT: +1 edema. ABSENT: calf tenderness, clubbing, joint swelling Musculoskeletal exam: ABSENT: deformity, dislocation Neurological exam: PRESENT: alert, awake Psychiatric exam: PRESENT: appropriate affect Skin exam: PRESENT: dry, warm Results Laboratory Results: 05/26/18 05:25 05/26/18 05:25 05/26/18 05/26/18 05:25 05:25 WBC 8.3 RBC 4.66 Hgb 13.2 Hct 40.7 MCV 88 MCH 28.3 MCHC 32.4 RDW 16.7 H Plt Count 212 Seg Neutrophils % Not Reportable Lymphocytes % Not Reportable Monocytes % Not Reportable Eosinophils % Not Reportable Basophils % Not Reportable Absolute Neutrophils Not Reportable Absolute Lymphocytes Not Reportable Absolute Monocytes Not Reportable Absolute Eosinophils Not Reportable Absolute Basophils Not Reportable Sodium 138.8 Potassium 5.1 H Chloride 99 Carbon Dioxide 34 H Anion Gap 6 BUN 22 H Creatinine 0.70 Est GFR ( Amer) > 60 Est GFR (Non-Af Amer) > 60 Glucose 204 H Calcium 9.0 Magnesium 2.4 H Total Bilirubin 0.5 AST 12 L ALT 27 Alkaline Phosphatase 67 Total Protein 5.9 L Albumin 3.3 L 05/16/18 06:30 Troponin I < 0.012 Impressions: Chest/Abdomen CTA 05/16/18 00:00 IMPRESSION: No evidence of pulmonary embolus. Subtle mild centrilobular ground-glass opacities most conspicuous in the left upper lobe and lingula likely infectious/inflammatory. Chest CT 05/21/18 00:00 IMPRESSION: Rather extensive groundglass opacities bilaterally as well as areas of reticulonodular change consistent with diffuse pneumonitis. No effusion. The visualized airways are patent. Follow-up recommended following appropriate therapy. TECHNICAL DOCUMENTATION: Quality ID # 436: Final reports with documentation of one or more dose reduction techniques (e.g., Automated exposure control, adjustment of the mA and/or kV according to patient size, use of iterative reconstruction technique) copyright 2011 [employer]- All Rights Reserved Chest X-Ray 05/21/18 00:00 IMPRESSION: 1. No significant interval changes since the previous examination dated 05/16/2018. NO ACUTE RADIOGRAPHIC FINDING IN THE CHEST. Modified Barium Swallow 05/23/18 00:00 IMPRESSION: FLASH LARYNGEAL PENETRATION WITHOUT ASPIRATION.PLEASE SEE SPEECH PATHOLOGIST REPORT FOR OTHER FINDINGS AND RECOMMENDATIONS. Assessment & Plan - Diagnosis (1) Acute and chronic respiratory failure with hypoxia Is this a current diagnosis for this admission?: Yes Plan: The above patient has failed BiPAP with a patent airway. This patient would benefit from noninvasive mechanical ventilation via the trilogy AVAPS/AE and faster responding AVAPS rates. The trilogy is able to provide a target tidal volume and also adjusting the EPAP pressures to maintain a patent airway as well as an oral backup rate this machine will help improve PaCO2 levels. The severity of the patient's condition will lead to future hospitalizations and readmissions as well as life-threatening situations without the use of this device day and night. Trilogy home vent needed for hypercapnic respiratory failure. Family [facility] or [facility] [place] to follow for trilogy set up. Supplemental oxygen as required (2) COPD exacerbation Is this a current diagnosis for this admission?: Yes Plan: Labs- All tests 24 hr 05/24/18 10:00 ABG pH 7.39 ABG pCO2 55.4 H ABG pO2 113.6 H FiO2 35% (3) Morbid obesity with BMI of 45.0-49.9, adult Is this a current diagnosis for this admission?: Yes Plan: Nutritional consult consider bariatric surgery Patient complains of dysphasia and choking modified barium swallow (4) Obstructive sleep apnea Is this a current diagnosis for this admission?: Yes Plan: Important to schedule for sleep study prior to discharge (5) Tobacco dependence Is this a current diagnosis for this admission?: Yes Plan: Stop smoking discussed at length risk and dangers associated with continued tobacco use
--- NOTE | 2018-05-26 14:51 | PDOC PROGRESS REPORT ---
Subjective Progress Note for:: 05/26/18 Subjective:: 05/23/2018-no acute events in the last 24 hours. Patient is afebrile. Patient still using BiPAP on and off basis. Patient is not on home oxygen at home. 05/24/2018-no acute events in the last 24 hours. Patient is afebrile. Patient still on BiPAP. Pulmonary consult was done to see if the patient is to go home on either CPAP or BiPAP. ABG done today on BiPAP shows pH of 7.39/PCO2 55.4/PO2 113/bicarb is 32.7. 05/25/2018 no acute events in last 24 hours. Patient still on BiPAP. Probably she may have to go home on BiPAP and on continuous home oxygen. 05/26/2018 no acute events in the last 24. Hours. Patient is afebrile. As per the pulmonology recommendations she is on and off BiPAP. Pulse ox is 96% on 3.5 L oxygen. Patient is comfortable in the bed denies any complaints. Reason For Visit: COPD EXACERBATION Physical Exam Vital Signs: Temp Pulse Resp BP Pulse Ox 97.5 F 107 H 18 151/80 H 97 05/26/18 12:31 05/26/18 14:27 05/26/18 14:27 05/26/18 12:31 05/26/18 14:27 Pulse Oximeter Nocturnal Start: 05/22/18 15:03 Freq: RTQ4 Status: Complete Protocol: Document 05/23/18 04:00 LRO (Rec: 05/23/18 04:16 LRO [id number]) Nocturnal Pulse Oximetry Equipment Usage Equipment in Use Oxygen Delivery Method (includes room Nasal Cannula air) O2 Sat by Pulse Oximetry (92-100) 94 Continuous SpO2 Machine # 9 Intake & Output 05/25/18 05/26/18 05/27/18 06:59 06:59 06:59 Intake Total 1687 1550 Balance 1687 1550 Weight 125.2 kg 125.1 kg General appearance: PRESENT: other - . Obese female comfortable in the bed not in distress. Head exam: PRESENT: atraumatic Mouth exam: PRESENT: moist Teeth exam: PRESENT: poor dentation Neck exam: ABSENT: carotid bruit, JVD, lymphadenopathy, thyromegaly Respiratory exam: PRESENT: decreased breath sounds. ABSENT: rhonchi Cardiovascular exam: PRESENT: RRR. ABSENT: diastolic murmur, rubs, systolic murmur GI/Abdominal exam: PRESENT: other - Morbidly obese abdomen, nontender, no organomegaly. Extremities exam: PRESENT: full ROM. ABSENT: calf tenderness, clubbing, pedal edema Neurological exam: PRESENT: alert, awake, oriented to person, oriented to place, oriented to time, oriented to situation, CN II-XII grossly intact. ABSENT: motor sensory deficit Psychiatric exam: PRESENT: appropriate affect, normal mood. ABSENT: homicidal ideation, suicidal ideation Results Laboratory Results: 05/26/18 05:25 05/26/18 05:25 05/26/18 05/26/18 05:25 05:25 WBC 8.3 RBC 4.66 Hgb 13.2 Hct 40.7 MCV 88 MCH 28.3 MCHC 32.4 RDW 16.7 H Plt Count 212 Seg Neutrophils % Not Reportable Lymphocytes % Not Reportable Monocytes % Not Reportable Eosinophils % Not Reportable Basophils % Not Reportable Absolute Neutrophils Not Reportable Absolute Lymphocytes Not Reportable Absolute Monocytes Not Reportable Absolute Eosinophils Not Reportable Absolute Basophils Not Reportable Sodium 138.8 Potassium 5.1 H Chloride 99 Carbon Dioxide 34 H Anion Gap 6 BUN 22 H Creatinine 0.70 Est GFR ( Amer) > 60 Est GFR (Non-Af Amer) > 60 Glucose 204 H Calcium 9.0 Magnesium 2.4 H Total Bilirubin 0.5 AST 12 L ALT 27 Alkaline Phosphatase 67 Total Protein 5.9 L Albumin 3.3 L 05/16/18 06:30 Troponin I < 0.012 Impressions: Chest/Abdomen CTA 05/16/18 00:00 IMPRESSION: No evidence of pulmonary embolus. Subtle mild centrilobular ground-glass opacities most conspicuous in the left upper lobe and lingula likely infectious/inflammatory. Chest CT 05/21/18 00:00 IMPRESSION: Rather extensive groundglass opacities bilaterally as well as areas of reticulonodular change consistent with diffuse pneumonitis. No effusion. The visualized airways are patent. Follow-up recommended following appropriate therapy. TECHNICAL DOCUMENTATION: Quality ID # 436: Final reports with documentation of one or more dose reduction techniques (e.g., Automated exposure control, adjustment of the mA and/or kV according to patient size, use of iterative reconstruction technique) copyright 2011 [employer]- All Rights Reserved Chest X-Ray 05/21/18 00:00 IMPRESSION: 1. No significant interval changes since the previous examination dated 05/16/2018. NO ACUTE RADIOGRAPHIC FINDING IN THE CHEST. Modified Barium Swallow 05/23/18 00:00 IMPRESSION: FLASH LARYNGEAL PENETRATION WITHOUT ASPIRATION.PLEASE SEE SPEECH PATHOLOGIST REPORT FOR OTHER FINDINGS AND RECOMMENDATIONS. Assessment & Plan - Diagnosis (1) Acute and chronic respiratory failure with hypoxia Is this a current diagnosis for this admission?: Yes Plan: 05/23/2018-patient was admitted with acute on chronic respiratory failure with hypoxia. Most likely secondary to COPD exacerbation and possible underlying pneumonia. Patient is still requiring BiPAP on regular basis. Pulse ox is 93% on [address] Boyd was done. Patient is presently on levofloxacin 750 mg IV daily, albuterol nebulizations every 3 hours as needed, DuoNeb nebulizations every 6 hours. Patient is on IV Solu-Medrol 80 mg every 6 hours. To decrease the IV Solu-Medrol to 40 mg every 6 hours. 05/24/2018-patient was admitted with acute on chronic respiratory failure with hypoxia and hypercapnia most likely secondary to COPD exacerbation and she might have also obesity associated hypoventilation syndrome. Medical consult was done. Pulse ox today on 4 L is 96%. 05/25/2018-this 52-year-old female morbidly obese female with history of COPD secondary to chronic smoking admitted for acute on chronic respiratory failure with hypoxia and hypercapnia. She might have a underlying obesity associated hy poventilation syndrome. Consultation with Dr. Boyd was done in my opinion she needs continuous home oxygen also needs CPAP at night. I will talk to the licensed clinical social worker about making those arrangements tomorrow. 05/26/2018-this 52-year-old female admitted for COPD exacerbation leading to acute on chronic respiratory failure with hypoxia. Pulse ox is 96% on 3.4 L. She is morbidly obese may have obesity associated hypoventilation syndrome. Patient may have go home on BiPAP. (2) COPD exacerbation Is this a current diagnosis for this admission?: Yes Plan: 05/23/2018-patient was admitted with COPD exacerbation. Presently on IV Solu- Medrol 40 mg every 8 hours, albuterol nebulizations and DuoNeb nebulizations. Pulmonary consult was done. Allergy panel was requested. Pulse ox is 93% 3 L. 05/24/2018-patient admitted with COPD exacerbation COPD most likely to smoking. Presently on albuterol nebulizations, DuoNeb nebulizations and IV Solu-Medrol 40 mg every 8 hours. Pulse ox is 96% 4 L pulmonary consult was done. plan Is to continue the present management. 05/25/2018-patient has history of COPD secondary to smoking not on home oxygen. Presently she is on 4 L oxygen pulse ox is 96%. Even with minimum activity pu lse ox are dropping to 80s. 05/26/2018-patient has history of COPD secondary to chronic smoking. Not on home oxygen. Presently pulse ox is 96% on 3.5 L. cash office worker consult was requested for home oxygen needs. (3) Morbid obesity with BMI of 45.0-49.9, adult Is this a current diagnosis for this admission?: Yes (4) Obstructive sleep apnea Is this a current diagnosis for this admission?: Yes (5) Tobacco dependence Is this a current diagnosis for this admission?: Yes (6) Pneumonia Qualifiers: Pneumonia type: due to unspecified organism Laterality: bilateral Is this a current diagnosis for this admission?: Yes Plan: 05/23/2018-patient has most likely community-acquired pneumonia she is on IV levofloxacin 750 mg daily. The blood cultures are negative. She is unable to give sputum culture. 05/24/2018 patient most likely have a community-acquired pneumonia blood cultures are negative. Unable to do the sputum cultures. Presently on IV levofloxacin 750 mg daily. Plan is to continue the present management. 05/25/2018 CT scan was done on 05/21/2018 it shows extensive groundglass opacities bilaterally as well as areas of reticulonodular change consistent with a diffuse pneumonitis. Presently on levofloxacin 750 mg IV daily. PPD was negative for TB. 05/26/2018-CT scan that was done on 05/21/2018 shows extensive groundglass opacities bilaterally as well as reticular nodular changes consistent with a diffuse pneumonitis. Patient is afebrile. Cultures are negative. PPD negative for TB. Presently on levofloxacin 750 mg IV daily. Plan is to continue the present management. She may have to go home on p.o. antibiotics. - Time Time Spent with patient: 15-24 minutes Medications reviewed and adjusted accordingly: Yes Anticipated discharge: Home
[2018-05-26] MEDS: PREDNISONE 10 MG TABLET PO SCH (17:43)
[2018-05-26] MEDS: TRAZODONE HCL 50 MG TABLET PO SCH (22:32)
[2018-05-27] MEDS: IPRATROPIUM/ALBUTEROL 0.5-2.5 MG/3 ML AMPUL NEB SCH ×3 (02:17→13:45)
[2018-05-27] MEDS: BUSPIRONE HCL 10 MG TABLET PO SCH ×2 (05:35→14:48)
[2018-05-27] MEDS: BUDESONIDE NEB 0.5 MG/2 ML AMPUL NEB SCH (08:04)
[2018-05-27] MEDS: CLONAZEPAM 1 MG TABLET PO SCH ×3 (10:20→17:56)
[2018-05-27] MEDS: MONTELUKAST SODIUM 10 MG TABLET PO SCH (10:20)
[2018-05-27] MEDS: CETIRIZINE 10 MG TABLET PO SCH (10:20)
[2018-05-27] MEDS: GUAIFENESIN 600 MG TABLET.SA PO SCH (10:21)
[2018-05-27] MEDS: SERTRALINE HCL 50 MG TABLET PO SCH (10:21)
[2018-05-27] MEDS: PREDNISONE 10 MG TABLET PO SCH ×2 (10:21→17:56)
[2018-05-27] MEDS: FAMOTIDINE 20 MG TABLET PO SCH (10:21)
[2018-05-27] MEDS: ENOXAPARIN SODIUM INJ 40 MG/0.4 ML DISP.SYRIN SUBCUT SCH (10:23)
[2018-05-27] MEDS: FLUTICASONE NASAL SPRAY 50 MCG/SPRY 120 SPRAY/16 GM NASL SCH (10:34)
[2018-05-27 13:01] VITALS: BP 154/82
--- NOTE | 2018-05-27 15:45 | PDOC DISCHARGE SUMMARY ---
General - Admit/Disc Date/PCP Admission Date/Primary Care Provider: 05/16/18 12:48 NICKY ROBERSON MD Discharge Date: 05/27/18 - Discharge Diagnosis (1) Acute and chronic respiratory failure with hypoxia Is this a current diagnosis for this admission?: Yes Summary: 05/23/2018-patient was admitted with acute on chronic respiratory failure with hypoxia. Most likely secondary to COPD exacerbation and possible underlying pneumonia. Patient is still requiring BiPAP on regular basis. Pulse ox is 93% on [address] Boyd was done. Patient is presently on levo floxacin 750 mg IV daily, albuterol nebulizations every 3 hours as needed, DuoNeb nebulizations every 6 hours. Patient is on IV Solu-Medrol 80 mg every 6 hours. To decrease the IV Solu-Medrol to 40 mg every 6 hours. 05/24/2018-patient was admitted with acute on chronic respiratory failure with hypoxia and hypercapnia most likely secondary to COPD exacerbation and she might have also obesity associated hypoventilation syndrome. Medical consult was done. Pulse ox today on 4 L is 96%. 05/25/2018-this 52-year-old female morbidly obese female with history of COPD secondary to chronic smoking admitted for acute on chronic respiratory failure with hypoxia and hypercapnia. She might have a underlying obesity associated hypoventilation syndrome. Consultation with Dr. Boyd was done in my opinion she needs continuous home oxygen also needs CPAP at night. I will talk to the clinical social work therapist about making those arrangements tomorrow. 05/26/2018-this 52-year-old female admitted for COPD exacerbation leading to acute on chronic respiratory failure with hypoxia. Pulse ox is 96% on 3.4 L. She is morbidly obese may have obesity associated hypoventilation syndrome. Patient may have go home on BiPAP. [id number]-rhft-old female admitted for COPD exacerbation causing acute on chronic respiratory failure with hypoxia. She is going home with trilogy SABINE/fanny patient was advised to follow-up with Dr. Boyd in 1 week as an outpatient. (2) COPD exacerbation Is this a current diagnosis for this admission?: Yes Summary: 05/23/2018-patient was admitted with COPD exacerbation. Presently on IV Solu- Medrol 40 mg every 8 hours, albuterol nebulizations and DuoNeb nebulizations. Pulmonary consult was done. Allergy panel was requested. Pulse ox is 93% 3 L. 05/24/2018-patient admitted with COPD exacerbation COPD most likely to smoking. Presently on albuterol nebulizations, DuoNeb nebulizations and IV Solu-Medrol 40 mg every 8 hours. Pulse ox is 96% 4 L pulmonary consult was done. plan Is to continue the present management. 05/25/2018-patient has history of COPD secondary to smoking not on home oxygen. Presently she is on 4 L oxygen pulse ox is 96%. Even with minimum activity pulse ox are dropping to 80s. 05/26/2018-patient has history of COPD secondary to chronic smoking. Not on home oxygen. Presently pulse ox is 96% on 3.5 L. heating worker consult was requested for home oxygen needs. 05/27/2018 patient has history of COPD secondary to chronic smoking. She is going home on trilogy AVAPS/AE. (3) Morbid obesity with BMI of 45.0-49.9, adult Is this a current diagnosis for this admission?: Yes (4) Obstructive sleep apnea Is this a current diagnosis for this admission?: Yes Summary: 05/27/2018 patient's BMI is more than 45 she might have obstructive sleep apnea she was advised to follow-up with Dr. Boyd for outpatient sleep studies. (5) Tobacco dependence Is this a current diagnosis for this admission?: Yes (6) Pneumonia Is this a current diagnosis for this admission?: Yes Summary: 05/23/2018-patient has most likely community-acquired pneumonia she is on IV levofloxacin 750 mg daily. The blood cultures are negative. She is unable to give sputum culture. 05/24/2018 patient most likely have a community-acquired pneumonia blood cultures are negative. Unable to do the sputum cultures. Presently on IV levofloxacin 750 mg daily. Plan is to continue the present management. 05/25/2018 CT scan was done on 05/21/2018 it shows extensive groundglass opacities bilaterally as well as areas of reticulonodular change consistent with a diffuse pneumonitis. Presently on levofloxacin 750 mg IV daily. PPD was negative for TB. 05/26/2018-CT scan that was done on 05/21/2018 shows extensive groundglass opacities bilaterally as well as reticular nodular changes consistent with a diffuse pneumonitis. Patient is afebrile. Cultures are negative. PPD negative for TB. Presently on levofloxacin 750 mg IV daily. Plan is to continue the present management. She may have to go home on p.o. antibiotics. 05/27/2018-chest x-ray shows groundglass opacities bilaterally as well as reticular nodular changes consistent with diffuse pneumonitis. She completed 7 days of antibiotic therapy she does not need need to take antibiotics at home. Patient is afebrile for the last 48 ultrasound to 2 hours. Patient was advised to follow-up with Dr. Boyd in 1 week. - Additional Information Resuscitation Status: Full Code Discharge Diet: Cardiac Discharge Activity: Activity As Tolerated Prescriptions: Clonazepam [Klonopin 1 mg Tablet] 0.5 mg PO TID #10 tablet Prednisone [Deltasone 10 mg Tablet] 10 mg PO BID #10 tablet Home Medications: Cetirizine HCl [Zyrtec] 10 mg PO DAILY 08/25/13 Montelukast Sodium 10 mg PO DAILY 08/25/13 Albuterol Sulfate [Proair HFA] 1 - 2 puff IH Q4 PRN 08/26/13 Fluticasone/Salmeterol [Advair HFA 230-21 mcg Inhaler] 2 puff IH BID 05/16/18 Sertraline HCl [Zoloft] 100 mg PO DAILY 05/16/18 Clonazepam [Klonopin 1 mg Tablet] 0.5 mg PO TID #10 tablet 05/27/18 Prednisone [Deltasone 10 mg Tablet] 10 mg PO BID #10 tablet 05/27/18 History of Present Illness History of Present Illness: ALIZA STEWART is a 52 year old female 52 year old female patient with past medical history of obstructive sleep apnea, morbid obesity, COPD exacerbation, and anxiety depression and bronchial asthma presented with chief complaint of shortness of breath, vomiting and diarrhea. Patient brought by EMS and when she arrived to the hospital her O2 saturation dropped to lower 80s. Patient denied any fever or chills and diaphoresis. She endorses palpitation and chest pain. Even though she has vomiting and diarrhea she denied any abdominal pain. No headache, dizziness, blurring of vision or any seizure activity. Her blood works and imaging studies unremarkable. Physical Exam Vital Signs: Temp Pulse Resp BP Pulse Ox 98.4 F 85 19 154/82 H 95 05/27/18 12:00 05/27/18 13:45 05/27/18 13:45 05/27/18 12:00 05/27/18 13:45 Pulse Oximeter Nocturnal Start: 05/22/18 15:03 Freq: RTQ4 Status: Complete Protocol: Document 05/23/18 04:00 LRO (Rec: 05/23/18 04:16 LRO [id number]) Nocturnal Pulse Oximetry Equipment Usage Equipment in Use Oxygen Delivery Method (includes room Nasal Cannula air) O2 Sat by Pulse Oximetry (92-100) 94 Continuous SpO2 Machine # 9 Intake & Output 05/26/18 05/27/18 05/28/18 06:59 06:59 06:59 Intake Total 1550 1906 236 Balance 1550 1906 236 Weight 125.1 kg 126.9 kg General appearance: PRESENT: no acute distress Head exam: PRESENT: atraumatic Eye exam: PRESENT: PERRLA Mouth exam: PRESENT: dry mucosa Neck exam: ABSENT: carotid bruit, JVD, lymphadenopathy, thyromegaly Respiratory exam: PRESENT: clear to auscultation caitlyn, decreased breath sounds. ABSENT: rales, rhonchi, wheezes Cardiovascular exam: PRESENT: RRR, tachycardia. ABSENT: diastolic murmur, rubs, systolic murmur GI/Abdominal exam: PRESENT: normal bowel sounds, soft. ABSENT: distended, guarding, mass, organolmegaly, rebound, tenderness Extremities exam: PRESENT: full ROM. ABSENT: calf tenderness, clubbing, pedal e marii Psychiatric exam: PRESENT: appropriate affect, normal mood. ABSENT: homicidal ideation, suicidal ideation Results Laboratory Results: 05/26/18 05:25 05/26/18 05:25 05/16/18 06:30 Troponin I < 0.012 Impressions: Chest/Abdomen CTA 05/16/18 00:00 IMPRESSION: No evidence of pulmonary embolus. Subtle mild centrilobular ground-glass opacities most conspicuous in the left upper lobe and lingula likely infectious/inflammatory. Chest CT 05/21/18 00:00 IMPRESSION: Rather extensive groundglass opacities bilaterally as well as areas of reticulonodular change consistent with diffuse pneumonitis. No effusion. The visualized airways are patent. Follow-up recommended following appropriate therapy. TECHNICAL DOCUMENTATION: Quality ID # 436: Final reports with documentation of one or more dose reduction techniques (e.g., Automated exposure control, adjustment of the mA and/or kV according to patient size, use of iterative reconstruction technique) copyright 2010 [employer]- All Rights Reserved Chest X-Ray 05/21/18 00:00 IMPRESSION: 1. No significant interval changes since the previous examination dated 05/16/2018. NO ACUTE RADIOGRAPHIC FINDING IN THE CHEST. Modified Barium Swallow 05/23/18 00:00 IMPRESSION: FLASH LARYNGEAL PENETRATION WITHOUT ASPIRATION.PLEASE SEE SPEECH PATHOLOGIST REPORT FOR OTHER FINDINGS AND RECOMMENDATIONS. Qualifiers - * PATIENT BEING DISCHARGED WITH ANY OF THE FOLLOWING DIAGNOSIS: No VTE patient discharged on overlapping Therapy?: No
--- NOTE | 2018-05-30 18:35 | PDOC PROGRESS REPORT ---
Subjective Progress Note for:: 05/23/18 Subjective:: Patient is happy to have BiPAP and enjoys although she does forget from time to time to put it on when she is sleeping Reason For Visit: COPD EXACERBATION Physical Exam Vital Signs: Temp Pulse Resp BP Pulse Ox 97.6 F 86 24 H 155/85 H 96 05/25/18 23:13 05/26/18 07:59 05/26/18 07:59 05/25/18 23:13 05/26/18 07:59 Pulse Oximeter Nocturnal Start: 05/22/18 15:03 Freq: RTQ4 Status: Complete Protocol: Document 05/23/18 04:00 LRO (Rec: 05/23/18 04:16 LRO [id number]) Nocturnal Pulse Oximetry Equipment Usage Equipment in Use Oxygen Delivery Method (includes room Nasal Cannula air) O2 Sat by Pulse Oximetry (92-100) 94 Continuous SpO2 Machine # 9 Intake & Output 05/25/18 05/26/18 05/27/18 06:59 06:59 06:59 Intake Total 1687 1550 Balance 1687 1550 Weight 125.2 kg 125.1 kg General appearance: PRESENT: no acute distress, cooperative, disheveled, morbidly obese Head exam: PRESENT: atraumatic, normocephalic Eye exam: PRESENT: conjunctiva pale, EOMI. ABSENT: nystagmus, periorbital swelling Mouth exam: PRESENT: dry mucosa, neck supple, tongue midline Neck exam: ABSENT: carotid bruit, JVD, lymphadenopathy, thyromegaly, tracheal deviation, tracheostomy Respiratory exam: PRESENT: decreased breath sounds, prolonged expiratory phas, retraction, rhonchi, unlabored, wheezes. ABSENT: rales, stridor Cardiovascular exam: PRESENT: RRR, +S1, +S2 Pulses: PRESENT: normal radial pulses GI/Abdominal exam: PRESENT: soft. ABSENT: tenderness Extremities exam: PRESENT: +1 edema. ABSENT: calf tenderness, clubbing, joint swelling Musculoskeletal exam: ABSENT: ambulatory, deformity, dislocation Neurological exam: PRESENT: alert, awake Psychiatric exam: PRESENT: appropriate affect Skin exam: PRESENT: dry, warm Results Laboratory Results: 05/26/18 05:25 05/26/18 05:25 05/26/18 05/26/18 05:25 05:25 WBC 8.3 RBC 4.66 Hgb 13.2 Hct 40.7 MCV 88 MCH 28.3 MCHC 32.4 RDW 16.7 H Plt Count 212 Seg Neutrophils % Not Reportable Lymphocytes % Not Reportable Monocytes % Not Reportable Eosinophils % Not Reportable Basophils % Not Reportable Absolute Neutrophils Not Reportable Absolute Lymphocytes Not Reportable Absolute Monocytes Not Reportable Absolute Eosinophils Not Reportable Absolute Basophils Not Reportable Sodium 138.8 Potassium 5.1 H Chloride 99 Carbon Dioxide 34 H Anion Gap 6 BUN 22 H Creatinine 0.70 Est GFR ( Amer) > 60 Est GFR (Non-Af Amer) > 60 Glucose 204 H Calcium 9.0 Magnesium 2.4 H Total Bilirubin 0.5 AST 12 L ALT 27 Alkaline Phosphatase 67 Total Protein 5.9 L Albumin 3.3 L 05/16/18 06:30 Troponin I < 0.012 Impressions: Chest/Abdomen CTA 05/16/18 00:00 IMPRESSION: No evidence of pulmonary embolus. Subtle mild centrilobular ground-glass opacities most conspicuous in the left upper lobe and lingula likely infectious/inflammatory. Chest CT 05/21/18 00:00 IMPRESSION: Rather extensive groundglass opacities bilaterally as well as areas of reticulonodular change consistent with diffuse pneumonitis. No effusion. The visualized airways are patent. Follow-up recommended following appropriate therapy. TECHNICAL DOCUMENTATION: Quality ID # 436: Final reports with documentation of one or more dose reduction techniques (e.g., Automated exposure control, adjustment of the mA and/or kV according to patient size, use of iterative reconstruction technique) copyright 2011 [employer]- All Rights Reserved Chest X-Ray 05/21/18 00:00 IMPRESSION: 1. No significant interval changes since the previous examination dated 05/16/2018. NO ACUTE RADIOGRAPHIC FINDING IN THE CHEST. Modified Barium Swallow 05/23/18 00:00 IMPRESSION: FLASH LARYNGEAL PENETRATION WITHOUT ASPIRATION.PLEASE SEE SPEECH PATHOLOGIST REPORT FOR OTHER FINDINGS AND RECOMMENDATIONS. Assessment & Plan - Diagnosis (1) Acute and chronic respiratory failure with hypoxia Is this a current diagnosis for this admission?: Yes Plan: The above patient has failed BiPAP with a patent airway. This patient would benefit from noninvasive mechanical ventilation via the trilogy AVAPS/AE and faster responding AVAPS rates. The trilogy is able to provide a target tidal volume and also adjusting the EPAP pressures to maintain a patent airway as well as an oral backup rate this machine will help improve PaCO2 levels. The severity of the patient's condition will lead to future hospitalizations and readmissions as well as life-threatening situations without the use of this device day and night. Trilogy home vent needed for hypercapnic respiratory failure. Family Medical or Med Cope to follow for trilogy set up. Supplemental oxygen as required (2) COPD exacerbation Is this a current diagnosis for this admission?: Yes Plan: Labs- All tests 24 hr 05/24/18 10:00 ABG pH 7.39 ABG pCO2 55.4 H ABG pO2 113.6 H FiO2 35% (3) Morbid obesity with BMI of 45.0-49.9, adult Is this a current diagnosis for this admission?: Yes Plan: Nutritional consult consider bariatric surgery Patient complains of dysphasia and choking modified barium swallow (4) Obstructive sleep apnea Is this a current diagnosis for this admission?: Yes Plan: Important to schedule for sleep study prior to discharge (5) Tobacco dependence Is this a current diagnosis for this admission?: Yes Plan: Stop smoking discussed at length risk and dangers associated with continued tobacco use
--- NOTE | 2018-05-30 18:50 | Pulmonary Function Test ---
Pulmonary Function Test Date of Procedure:: 05/22/18 INDICATION:: Dyspnea Referring Provider: Jose Harding M.D. Electronic Controls Repairer Supervisor: Marbella Dobbins [employer] - Report Spirometry: FVC 1.54 L 44% postbronchodialator 1.69 L 49% FEV1 0.69 L 25% postbronchodialator 0.67L 24% FEV1/FVC% 45 postbronchodialator 40 predicted 80 [id number] 0.36L 13% postbronchodialator 0.25L 9% Impression: Severe obstructive ventilatory defect with insignificant response to bronchodilator therapy. This does not preclude a clinical trial of bronchodilator therapy. Restrictive defect is implied but cannot be diagnosed on the basis of spirometry alone. (Restrictive defect may mask the degree of obstruction.) If clinically indicated complete pulmonary function test would be warranted
== END 2018-05-27 18:50 | disposition home health service (06) | DRG 189 ==
LOC: ER 07:03 → INTOOBSV 12:48 → OBSVTOIN 12:48 → EH 12:48 → 5 17:50
PROVIDERS: ADMIT Internal Medicine; ATTEND Internal Medicine
PROC: 3E0F73Z Introduction of Anti-inflammatory into Respiratory Tract, Via Natural or Artificial Opening (ICD-10-PCS; 2018-05-16)
PROC: 5A09557 Assistance with Respiratory Ventilation, Greater than 96 Consecutive Hours, Continuous Positive Airway Pressure (ICD-10-PCS; principal; 2018-05-19)
DX: J96.21 Acute and chronic respiratory failure with hypoxia (principal); J18.9 Pneumonia, unspecified organism; J44.1 Chronic obstructive pulmonary disease with (acute) exacerbation; E66.2 Morbid (severe) obesity with alveolar hypoventilation; Z68.42 Body mass index [BMI] 45.0-49.9, adult; J96.22 Acute and chronic respiratory failure with hypercapnia; F32.9 Major depressive disorder, single episode, unspecified; F41.9 Anxiety disorder, unspecified; F17.210 Nicotine dependence, cigarettes, uncomplicated; Z88.0 Allergy status to penicillin; Z79.899 Other long term (current) drug therapy; Z90.49 Acquired absence of other specified parts of digestive tract; Z83.3 Family history of diabetes mellitus; Z82.49 Family history of ischemic heart disease and other diseases of the circulatory system; Z80.9 Family history of malignant neoplasm, unspecified
CPT/HCPCS: 36415; 36600; 71045; 71260; 71275; 74230; 80048; 80053; 81332; 82803; 83036; 83690; 83735; 84484; 85025; 86003; 87040; 93005; 93010; 94060; 94640; 94660; 94762; 94799; 96374; 96375; 99285; G0378; J0360; J1650; J1885; J1956; J2060; J2405; J2550; J2920; J2930; J3490; J7512; J7620

== ENCOUNTER → 2019-02-25 | Outpatient (CLI) | payer MEDICAID ==
--- NOTE | 2019-02-25 15:34 | RADIOLOGY REPORT (SQ) ---
EXAM DESCRIPTION: CHEST PA/LATERAL COMPLETED DATE/TIME: 02/25/2019 3:19 pm REASON FOR STUDY: CHRONIC OBSTRUCTIVE PULMONARY DISEASE, UNSPECIFIED COMPARISON: 05/21/2018 EXAM PARAMETERS: NUMBER OF VIEWS: two views TECHNIQUE: Digital Frontal and Lateral radiographic views of the chest acquired. RADIATION DOSE: NA LIMITATIONS: none FINDINGS: LUNGS AND PLEURA: No opacities, masses or pneumothorax. No pleural effusion. MEDIASTINUM AND HILAR STRUCTURES: No masses or contour abnormalities. HEART AND VASCULAR STRUCTURES: Heart normal size. No evidence for failure. BONES: No acute findings. HARDWARE: None in the chest. OTHER: No other significant finding. IMPRESSION: NO SIGNIFICANT RADIOGRAPHIC FINDING IN THE CHEST. TECHNICAL DOCUMENTATION: JOB ID: [id number] [employer]- All Rights Reserved Reading location - IP/workstation name: [email or web address]
[2019-02-25 15:37] LABS: ABSOLUTE BASOPHILS # (AUTO) 0.1 10^3/uL (0.0-0.2); ABSOLUTE EOSINOPHILS # (AUTO) 0.3 10^3/uL (0.0-0.6); ABSOLUTE LYMPHOCYTES (AUTO) 2.2 10^3/uL (0.5-4.7); ABSOLUTE MONOCYTES (AUTO) 0.4 10^3/uL (0.1-1.4); ABSOLUTE NEUT (AUTO) 4.9 10^3/uL (1.7-8.2); BASOPHILS % (AUTO) 0.7 % (0-2); EOSINOPHILS % (AUTO) 3.6 % (0-6); HEMATOCRIT 42.6 % (36.0-47.0); HEMOGLOBIN 14.2 g/dL (12.0-15.5); LYMPHOCYTES % (AUTO) 28.5 % (13-45); MEAN CORPUSCULAR HEMOGLOBIN 28.1 pg (27.0-33.4); MEAN CORPUSCULAR HGB CONC 33.3 g/dL (32.0-36.0); MEAN CORPUSCULAR VOLUME 84 fl (80-97); MONOCYTES % (AUTO) 5.2 % (3-13); PLATELET COUNT 253 10^3/uL (150-450); RED BLOOD COUNT 5.05 10^6/uL (3.72-5.28); RED CELL DISTRIBUTION WIDTH 15.4 % (11.5-14.0); TOTAL CELLS COUNTED % (AUTO) 100 %; WHITE BLOOD COUNT 7.9 10^3/uL (4.0-10.5)
== END ==
LOC: OD 14:45
PROVIDERS: ATTEND Registered Nurse
DX: J44.9 Chronic obstructive pulmonary disease, unspecified (principal); Z88.9 Allergy status to unspecified drugs, medicaments and biological substances
CPT/HCPCS: 36415; 71046; 82785; 85025; 86003

== ENCOUNTER 2019-07-29 12:54 | Emergency (ER) | payer MEDICAID ==
[2019-07-29] MEDS ORDERED: ASPIRIN 81 MG TABLET, CHEWABLE PO ONE (13:28)
--- NOTE | 2019-07-29 13:30 | ER Document Report ---
ED General - General Chief Complaint: Shortness Of Breath Stated Complaint: SHORTNESS OF BREATH Time Seen by Provider: 07/29/19 13:06 Primary Care Provider: NICKY ROBERSON MD [Primary Care Provider] - Follow up in 3-5 days Mode of Arrival: Ambulatory Information source: Patient Notes: [id number] female presents to ED for complaint of chest heaviness and c hest pressure. She states she has a history of COPD and was recently admitted for respiratory failure. She states she does not have any cardiac history. She is morbidly obese. She does have a history of obstructive sleep apnea tobacco abuse pneumonia. She is alert oriented respirations regular nonlabored at this time. Her blood pressure is a little elevated at 150/97 O2 sat is 99% pulse 78 and respirations of 14. She denies any acute pain at this time. She states she does have some mild pressure. We will get cardiac enzymes treat patient with aspirin get chest x-ray and then reevaluate. Heart score 2 TRAVEL OUTSIDE OF THE [place] IN LAST 30 DAYS: No - HPI Onset: This morning Onset/Duration: Intermittent Quality of pain: Pressure Severity: Mild Pain Level: 1 Associated symptoms: Nonproductive cough, Shortness of breath, Other - chest pressure Exacerbated by: Supine, Movement, Walking Relieved by: Denies Similar symptoms previously: Yes Recently seen / treated by doctor: No - Related Data Allergies/Adverse Reactions: Penicillins Allergy (Verified 07/29/19 13:07) Hives Past Medical History - General Information source: Patient - Social History Smoking Status: Former Smoker Frequency of alcohol use: None Drug Abuse: None Lives with: Family Family History: DM, Hypertension, Malignancy Patient has suicidal ideation: No Patient has homicidal ideation: No - Past Medical History Cardiac Medical History: Reports: None Pulmonary Medical History: Reports: Hx Asthma, Hx Bronchitis, Hx COPD, Hx Pneumonia Denies: Hx Tuberculosis EENT Medical History: Reports: None Neurological Medical History: Reports: None Endocrine Medical History: Reports: None Renal/ Medical History: Reports: None Malignancy Medical History: Reports: None GI Medical History: Reports: None Musculoskeletal Medical History: Reports None Skin Medical History: Reports None Psychiatric Medical History: Reports: Hx Anxiety, Hx Depression Traumatic Medical History: Reports: None Infectious Medical History: Reports: None Past Surgical History: Reports: Hx Section, Hx Cholecystectomy, Hx Tubal Ligation - 1993 - Immunizations Hx Diphtheria, Pertussis, Tetanus Vaccination: Yes Hx Pneumococcal Vaccination: 12/01/11 Review of Systems - Review of Systems Constitutional: No symptoms reported EENT: No symptoms reported Cardiovascular: No symptoms reported Respiratory: Cough Gastrointestinal: No symptoms reported Genitourinary: No symptoms reported Female Genitourinary: No symptoms reported Musculoskeletal: No symptoms reported Skin: No symptoms reported Hematologic/Lymphatic: No symptoms reported Neurological/Psychological: No symptoms reported Physical Exam - Vital signs Vitals: Temp Pulse Resp BP Pulse Ox 98.6 F 86 18 156/106 H 99 07/29/19 12:55 07/29/19 12:55 07/29/19 12:55 07/29/19 12:55 07/29/19 12:55 Interpretation: Normal - General General appearance: Appears well, Alert - HEENT Head: Normocephalic, Atraumatic Eyes: Normal Pupils: PERRL Ears: Normal External canal: Normal Tympanic membrane: Normal Sinus: Normal Nasal: Normal Mouth/Lips: Normal Mucous membranes: Normal Pharynx: Normal Neck: Normal - Respiratory Respiratory status: No respiratory distress Chest status: Tender - Tenderness to palpation to the left side of her chest, Pain on movement, Pain with cough, Pain with deep breathing Breath sounds: Normal Chest palpation: Normal - Cardiovascular Rhythm: Regular Heart sounds: Normal auscultation Murmur: No - Abdominal Inspection: Normal Distension: No distension Bowel sounds: Normal Tenderness: Nontender Organomegaly: No organomegaly - Back Back: Normal, Nontender - Extremities General upper extremity: Normal inspection, Nontender, Normal color, Normal ROM, Normal temperature General lower extremity: Normal inspection, Nontender, Normal color, Normal ROM, Normal temperature, Normal weight bearing. No: Milton's sign - Neurological Neuro grossly intact: Yes Cognition: Normal Orientation: AAOx4 [place] Coma Scale Eye Opening: Spontaneous [place] Coma Scale Verbal: Oriented Kh[place] Coma Scale Motor: Obeys Commands [place] Coma Scale Total: 15 Speech: Normal Motor strength normal: LUE, RUE, LLE, RLE Sensory: Normal - Psychological Associated symptoms: Normal affect, Normal mood - Skin Skin Temperature: Warm Skin Moisture: Dry Skin Color: Normal Course - Re-evaluation Re-evalutation: 07/29/19 20:48 Discussed labs x-ray and history and physical with Dr. Haines. She did have a heart score of 2. Patient was discharged home to follow-up with primary care doctor. She had no pain at time of discharge. She states she did have some tightness from her COPD. Patient verbalized understanding and agreement with treatment plan and patient was discharged home. - Vital Signs Vital signs: Temp Pulse Resp BP Pulse Ox 98.2 F 86 17 139/90 H 100 07/29/19 17:00 07/29/19 12:55 07/29/19 17:01 07/29/19 17:00 07/29/19 17:01 - Laboratory Result Diagrams: 07/29/19 13:15 07/29/19 13:15 Laboratory results interpreted by me: 07/29/19 07/29/19 13:15 13:15 RDW 14.8 H Sodium 133.1 L Anion Gap 4 L - Diagnostic Test Radiology reviewed: Image reviewed, Reports reviewed Discharge - Discharge Clinical Impression: Chest wall tenderness Condition: Stable Disposition: HOME, SELF-CARE Additional Instructions: CHEST PAIN OF UNCLEAR CAUSE: The exact cause of your chest pain isn't clear. Fortunately, there is no e vidence of a dangerous medical condition. Further testing may be required to find the source of the pain. Most often, we find that this pain is coming from the chest wall -- the muscles or rib joints in the chest. But chest pain can come from the lung and lung lining, the esophagus, the heart valves or heart lining, and even the stomach or gallbladder. Rest. Eat lightly until the pain is gone. We may prescribe medicine for pain and inflammation. You should call the physician immediately if the pain radiates to the shoulder, jaw or arms; if you start to run a fever or develop a cough; or if you develop shortness of breath, or other new or alarming symptoms. NORMAL EXAM AND WORKUP: At this time, your examination and workup show no significant abnormality. No significant abnormal physical findings were noted. All laboratory, EKG, and imaging (x-ray, CT scans, ultrasound) studies that were ordered show no significant abnormality. Although your examination and all studies that were ordered showed no significant abnormal finding, there are no examinations and no studies that are 100% accurate. There is always the possibility that some abnormality could e xist and not be detected with physical examination or within the limits and capabilities of laboratory and other studies. You should return or follow up as you were instructed on your visit today for further evaluation if your symptoms do not resolve. CHEST WALL PAIN: Your chest pain may be coming from the chest wall. This is often caused by straining the muscles or joints in the chest during physical activity, direct trauma, coughing, or vigorous vomiting. Persons with arthritis are especially prone to this type of pain, due to inflammation of the cartilage joints near the breast bone. Occasionally, no cause can be found. Rest from strenuous physical activity. This kind of chest pain is usually made worse by movement of the chest. Depending on the symptoms, we may pres cribe medicine for pain, muscle relaxation, and antiinflammatory effects. If the pain is new, and seems to be due to muscle strain, cold packs can help. Otherwise, apply gentle warmth to the painful area for 15 minutes every hour or two. You should call contact the doctor immediately if things change. Further evaluation is needed if you develop a fever or cough, if the nature of the pain changes, or if you become short of breath. Muscle Relaxers Muscle relaxing medications are usually prescribed for acute muscle spasm or injury to the neck and back. They are often combined with antiinflammatory pain medication for increased relief. You may stop the muscle relaxer when the pain and stiffness have improved. Start the medication again if spasms recur. Muscle relaxers may cause drowsiness, especially with the first dose. Do not operate machinery or drive while under the effects of the medication. Most muscle relaxers last up to 24 hours. Do not combine the medication with alcohol. FOLLOW-UP CARE: If you have been referred to a physician for follow-up care, call the physicians office for an appointment as you were instructed or within the next two days. If you experience worsening or a significant change in your symptoms, notify the physician immediately or return to the Emergency Department at any time for re-evaluation. Prescriptions: Cyclobenzaprine HCl [Flexeril 10 mg Tablet] 10 mg PO TIDP PRN #15 tab PRN Reason: Referrals: NICKY ROBERSON MD [Primary Care Provider] - Follow up in 3-5 days
[2019-07-29 13:54] LABS: ABSOLUTE BASOPHILS # (AUTO) 0.1 10^3/uL (0.0-0.2); ABSOLUTE EOSINOPHILS # (AUTO) 0.2 10^3/uL (0.0-0.6); ABSOLUTE LYMPHOCYTES (AUTO) 2.4 10^3/uL (0.5-4.7); ABSOLUTE MONOCYTES (AUTO) 0.5 10^3/uL (0.1-1.4); ABSOLUTE NEUT (AUTO) 4.8 10^3/uL (1.7-8.2); BASOPHILS % (AUTO) 0.7 % (0-2); EOSINOPHILS % (AUTO) 3.1 % (0-6); HEMATOCRIT 42.6 % (36.0-47.0); HEMOGLOBIN 14.8 g/dL (12.0-15.5); LYMPHOCYTES % (AUTO) 29.8 % (13-45); MEAN CORPUSCULAR HEMOGLOBIN 31.2 pg (27.0-33.4); MEAN CORPUSCULAR HGB CONC 34.8 g/dL (32.0-36.0); MEAN CORPUSCULAR VOLUME 90 fl (80-97); MONOCYTES % (AUTO) 6.8 % (3-13); PLATELET COUNT 239 10^3/uL (150-450); RED BLOOD COUNT 4.76 10^6/uL (3.72-5.28); RED CELL DISTRIBUTION WIDTH 14.8 % (11.5-14.0); SEGMENTED NEUTROPHILS % (AUTO) 59.6 % (42-78); TOTAL CELLS COUNTED % (AUTO) 100 %
[2019-07-29 14:05] LABS: ALBUMIN 3.9 g/dL (3.5-5.0); ALKALINE PHOSPHATASE 65 U/L (38-126); ASPARTATE AMINO TRANSFERASE 22 U/L (14-36); BILIRUBIN,TOTAL 0.4 mg/dL (0.2-1.3); BLOOD UREA NITROGEN 13 mg/dL (7-20); CALCIUM 9.3 mg/dL (8.4-10.2); CARBON DIOXIDE 26 mmol/L (22-30); CHLORIDE 103 mmol/L (98-107); GLUCOSE 84 mg/dL (75-110); POTASSIUM 4.4 mmol/L (3.6-5.0); TOTAL PROTEIN 6.7 g/dL (6.3-8.2)
[2019-07-29 14:06] LABS: ANION GAP 4 (5-19)
--- NOTE | 2019-07-29 14:09 | RADIOLOGY REPORT (SQ) ---
EXAM DESCRIPTION: CHEST SINGLE VIEW IMAGES COMPLETED DATE/TIME: 07/29/2019 1:52 pm REASON FOR STUDY: chest pressure COMPARISON: None. NUMBER OF VIEWS: One view. TECHNIQUE: Single frontal radiographic view of the chest acquired. LIMITATIONS: None. FINDINGS: LUNGS AND PLEURA: No opacities, masses or pneumothorax. No pleural effusion. MEDIASTINUM AND HILAR STRUCTURES: No masses. Contour normal. HEART AND VASCULAR STRUCTURES: Heart normal in size. Normal vasculature. BONES: No acute findings. HARDWARE: None in the chest. OTHER: No other significant finding. IMPRESSION: NO SIGNIFICANT RADIOGRAPHIC FINDING IN THE CHEST. TECHNICAL DOCUMENTATION: JOB ID: [id number] 2010 [employer]- All Rights Reserved Reading location - IP/workstation name: [email or web address]
[2019-07-29 18:19] VITALS: BP 139/90
--- NOTE | 2019-07-29 22:03 | EKG REPORT ---
SEVERITY:- BORDERLINE ECG - SINUS RHYTHM BORDERLINE T ABNORMALITIES, ANTERIOR LEADS BORDERLINE PROLONGED QT INTERVAL : Confirmed by: Radha Mcclure MD 29-Jul-2019 22:02:48
== END 2019-07-29 17:39 | disposition home or self-care (01) ==
LOC: ER 12:54
DX: R09.89 Other specified symptoms and signs involving the circulatory and respiratory systems (principal); J44.9 Chronic obstructive pulmonary disease, unspecified; R07.89 Other chest pain; E66.01 Morbid (severe) obesity due to excess calories; R05 Cough; R06.02 Shortness of breath; Z87.01 Personal history of pneumonia (recurrent); Z88.0 Allergy status to penicillin; Z87.891 Personal history of nicotine dependence
CPT/HCPCS: 36415; 71045; 80053; 84484; 85025; 93005; 93010; 99285

== ENCOUNTER → 2019-08-31 | Outpatient (CLI) | payer MEDICAID ==
[2019-08-31 12:58] LABS: ALKALINE PHOSPHATASE 61 U/L (38-126); ASPARTATE AMINO TRANSFERASE 23 U/L (14-36); BILIRUBIN,TOTAL 0.4 mg/dL (0.2-1.3); BLOOD UREA NITROGEN 13 mg/dL (7-20); CALCIUM 9.3 mg/dL (8.4-10.2); CHOLESTEROL 235.11 mg/dL (0-200); GLUCOSE 82 mg/dL (75-110); POTASSIUM 4.6 mmol/L (3.6-5.0); TOTAL PROTEIN 6.8 g/dL (6.3-8.2); TRIGLYCERIDES 221 mg/dL (<150)
[2019-08-31 13:03] LABS: ANION GAP 5 (5-19); CARBON DIOXIDE 29 mmol/L (22-30); CHLORIDE 103 mmol/L (98-107)
[2019-08-31 13:09] LABS: DIRECT LDL 164 mg/dL (<100)
[2019-08-31 13:14] LABS: VLDL CHOLESTEROL 44.2 mg/dL (10-31)
== END ==
LOC: OD 11:47
PROVIDERS: ATTEND Physician Assistant
DX: E78.5 Hyperlipidemia, unspecified (principal); R07.89 Other chest pain; R94.31 Abnormal electrocardiogram [ECG] [EKG]
CPT/HCPCS: 36415; 80048; 80061; 80076; 83735; 84443

== ENCOUNTER → 2019-10-09 | Outpatient (CLI) | payer MEDICAID ==
[2019-10-09 12:42] LABS: BLOOD UREA NITROGEN 14 mg/dL (7-20); CALCIUM 9.8 mg/dL (8.4-10.2); CARBON DIOXIDE 30 mmol/L (22-30); CHLORIDE 104 mmol/L (98-107); GLUCOSE 92 mg/dL (75-110); POTASSIUM 5.3 mmol/L (3.6-5.0)
[2019-10-09 12:51] LABS: ANION GAP 4 (5-19)
== END ==
LOC: OD 11:29
PROVIDERS: ATTEND Physician Assistant
DX: I10 Essential (primary) hypertension (principal); R00.2 Palpitations
CPT/HCPCS: 36415; 80048

== ENCOUNTER → 2019-10-28 | Outpatient (CLI) | payer MEDICAID ==
[2019-10-28 18:00] LABS: BLOOD UREA NITROGEN 12 mg/dL (7-20); CALCIUM 9.3 mg/dL (8.4-10.2); CARBON DIOXIDE 27 mmol/L (22-30); CHLORIDE 104 mmol/L (98-107); GLUCOSE 93 mg/dL (75-110); POTASSIUM 4.7 mmol/L (3.6-5.0)
[2019-10-28 18:06] LABS: ANION GAP 5 (5-19)
== END ==
LOC: OD 17:00
PROVIDERS: ATTEND Physician Assistant
DX: E87.5 Hyperkalemia (principal)
CPT/HCPCS: 36415; 80048

== ENCOUNTER → 2019-12-21 | Outpatient (CLI) | payer MEDICAID ==
[2019-12-21 15:06] LABS: BLOOD UREA NITROGEN 11 mg/dL (7-20); CALCIUM 9.2 mg/dL (8.4-10.2); GLUCOSE 117 mg/dL (75-110); POTASSIUM 4.2 mmol/L (3.6-5.0)
[2019-12-21 15:12] LABS: CARBON DIOXIDE 29 mmol/L (22-30); CHLORIDE 104 mmol/L (98-107)
[2019-12-21 15:15] LABS: ANION GAP 4 (5-19)
== END ==
LOC: OD 13:49
PROVIDERS: ATTEND Physician Assistant
DX: R00.2 Palpitations (principal); I10 Essential (primary) hypertension
CPT/HCPCS: 36415; 80048

== ENCOUNTER → 2020-01-06 | Outpatient (CLI) | payer MEDICAID | LOC: OD 14:00 | PROVIDERS: ATTEND Internal Medicine Cardiovascular Disease | DX: N91.2 Amenorrhea, unspecified (principal) | CPT/HCPCS: 36415; 84703 ==

== ENCOUNTER → 2020-01-07 | Outpatient (CLI) | payer MEDICAID ==
[~2020-01-07] MED LIST: AMINOPHYLLINE INJ/PF 250 MG/10 ML SDV IV ONE; REGADENOSON INJ 0.4 MG/5 ML DISP.SYRIN IV ONE
--- NOTE | 2020-01-08 09:26 | DRAGON STRESS TEST REPORT ---
INTRAVENOUS LEXISCAN CARDIOLITE STRESS TEST USING SINGLE PHOTON EMMISION COMPUTERIZED TOMOGRAPHIC. DATE OF PROCEDURE: January 07, 2020. INDICATION : Chest pain, dyspnea CARDIAC RISK FACTORS: Hypertension, RESTING EKG: Sinus rhythm minor nonspecific T wave changes STRESS EKG: No significant ST segment changes noted with LexiScan bolus REASON FOR TERMINATION: Protocol. PROCEDURE REPORT: Baseline heart rate 61 beats per minute with blood pressure of 159/72. Patient had no significant complaints. Patient was bolused with Lexiscan 0.4 mg intravenously followed by saline bolus. Heart rate at 2 minutes post bolus 80 with a blood pressure of 179/108. 3 minutes post bolus heart rate 68 with blood pressure of 178/92. No significant EKG changes were noted. Patient had no significant complaints during the procedure or postprocedure. CONCLUSIONS: Normal EKG and hemodynamic response to IV LexiScan. NUCLEAR DATA: At rest the patient was given 14.99 millicuries of technetium 99 sestamibi injected intravenously. As per protocol rest gated SPECT images were obtained. On day of stress test, the patient was given intravenous LexiScan at a dose of 0.4 mg in 5 mL intravenously, followed by flush with normal saline. Subsequently the stress dose of 45.5 millicuries of technetium 99 sestamibi was injected intravenously. As per protocol stress gated images were obtained. NUCLEAR INTERPRETATION: Both raw and processed data were used for interpretation. Visual, qualitative, computer-generated quantitative data was used. There was good myocardial uptake of technetium compound. Motion artifact and soft tissue attenuations were noted. Increased visceral uptake was noted. No definitive areas of transient perfusion defect noted, No definitive areas of fixed perfusion defect or scars noted. EKG gated imaging showed LV EF at 56%, rest and stress gated EF similar visually. T. I D. ratio was 1.08. Lung heart ratio noted to be within normal limits 0.29. No significant extracardiac and abnormal radiotracer activities were noted. RV free wall uptake was noted to be WNL. IMPRESSION: Also refer to comments under nuclear interpretation. Also test results needs to be interpreted in the context of pretest probability. 1. No definitive areas of transient perfusion defect noted. 2. There is no definitive scintigraphic evidence of myocardial infarction/scar. 3. EKG gated imaging shows left ventricular ejection fraction of approx. 56%. 4. Clinical correlation requested as worse disease and or balanced ischemia could be missed. In approximately 10% of the cases Lexiscan may not cause adequate vasodilatory stress. RECOMMENDATIONS: Aggressive risk factor modification and medical management. Further evaluation may be needed if continued symptoms or other high risk indicators are noted on clinical evaluation. Close cardiology follow-up is also recommended. Clinical correlation with echocardiogram derived ejection fraction. Inability to exercise by itself can lead to increased cardiovascular event risks. Consider cardiology consultation and or follow-up if clinically indicated. I am available for cardiology evaluation and consultation if requested by the insulation cutter and former, unless patient already has a industrial waste treatment technician. Dr. Sulaiman Dupont. MRCP Board certified in cardiology and sleep medicine. Board certified in nuclear cardiology, adult echocardiography. JACQUELINE
== END ==
LOC: RAD 08:00
PROVIDERS: ATTEND Internal Medicine Cardiovascular Disease
DX: R07.89 Other chest pain (principal); R06.00 Dyspnea, unspecified; I10 Essential (primary) hypertension
CPT/HCPCS: 93017; 78452; A9500; J2785; J0280; Q9969